=== PATIENT | female | born 1970 | race Caucasian/White ===

== ENCOUNTER → 2016-10-27 | Outpatient (CLI) | payer OTHER ==
[~2016-10-27] MED LIST: AMOX500C PO; Allergy Shots SC; CALC500T25 PO; EFFE150C PO; FLON0.054; IBUP200C PO; IBUP600T26 PO; MONT10TA2 PO; MULT1TAB8 PO; NORCOTAB PO; XOPEAER INH; ZYRT10TA2 PO
--- NOTE | 2016-10-27 17:08 | REP ---
Clinical: Sprain. Technique: AP, lateral, bilateral oblique views of the left foot. Findings: Age-related degenerative changes are appreciated primarily involving the midfoot. Lateral view demonstrates calcaneal heal spur and calcifications in the plantar soft tissue. No acute fracture or dislocation noted. Impression: Degenerative changes. No acute fracture or dislocation. Signed by Florentin Barnett MD 10/27/2016 05:00 P
--- NOTE | 2016-10-27 17:10 | REP ---
Clinical: Sprain. Technique: AP, lateral, bilateral oblique views of the left ankle. Findings: Marked soft tissue swelling is appreciated. No obvious acute fracture or dislocation identified. Underlying degenerative changes are noted possibly related to old injuries. Lateral view demonstrates calcaneal heal spur and calcifications within the plantar soft tissue. Impression: Diffuse soft tissue swelling. Degenerative changes. No acute fracture or dislocation. Signed by Florentin Barnett MD 10/27/2016 05:02 P
== END ==
LOC: M WUC 16:38
PROVIDERS: ATTEND Physician Assistant
DX: S93.422A Sprain of deltoid ligament of left ankle, initial encounter (principal); S93.602A Unspecified sprain of left foot, initial encounter; X58.XXXA Exposure to other specified factors, initial encounter; Y92.9 Unspecified place or not applicable; Y93.9 Activity, unspecified; Y99.9 Unspecified external cause status

== ENCOUNTER → 2017-01-14 | Outpatient (CLI) | payer OTHER ==
[2017-01-14 09:10] LABS: BASO % 0.6 % (0.0-1.0); EOS # 0.2 K/mm3 (0.0-0.50); EOS % 2.6 % (0.0-3.0); LARGE UNSTAINED CELL # 0.1 K/mm3 (0.0-0.4); LARGE UNSTAINED CELL % 1.5 % (0.0-4.0); LYMPH % 28.8 % (24.0-44.0); MEAN CORPUSCULAR HEMOGLOBIN 29.8 pg (27.0-33.0); MEAN CORPUSCULAR HGB CONC 34.3 g/dl (32.0-36.5); MEAN CORPUSCULAR VOLUME 86.9 fl (80.0-96.0); MONO # 0.4 K/mm3 (0.0-0.8); MONO % 5.8 % (0.0-5.0); NEUTROPHILS # 3.9 K/mm3 (1.8-7.7); NEUTROPHILS % 60.7 % (36.0-66.0); PLATELET COUNT, AUTOMATED 218 k/mm3 (150-450); RED CELL DISTRIBUTION WIDTH 12.5 % (11.5-14.5); WHITE BLOOD COUNT 6.4 K/mm3 (4.0-10.0)
[2017-01-14 09:55] LABS: ALBUMIN 3.4 GM/DL (3.2-5.2); ALBUMIN/GLOBULIN RATIO 1.03 (1.00-1.93); ALKALINE PHOSPHATASE 113 U/L (45-117); ALT/SGPT 40 U/L (12-78); ANION GAP 5 MEQ/L (8-16); AST/SGOT 20 U/L (15-37); BILIRUBIN,TOTAL 0.3 MG/DL (0.2-1.0); BLOOD UREA NITROGEN 13 MG/DL (7-18); CALCIUM LEVEL 9.3 MG/DL (8.5-10.1); CARBON DIOXIDE LEVEL 28 MEQ/L (21-32); CHLORIDE LEVEL 107 MEQ/L (98-107); CHOLESTEROL LEVEL 170 MG/DL (<200); CREATININE FOR GFR 0.67 MG/DL (0.55-1.02); GLOMERULAR FILTRATION RATE > 60.0 (>58); GLUCOSE, FASTING 101 MG/DL (70-105); POTASSIUM SERUM 4.7 MEQ/L (3.5-5.1); SODIUM LEVEL 140 MEQ/L (136-145); TOTAL PROTEIN 6.7 GM/DL (6.4-8.2); TRIGLYCERIDES LEVEL 275 MG/DL (<150)
== END ==
LOC: M WUC 08:20
PROVIDERS: ATTEND Emergency Medicine
DX: E78.2 Mixed hyperlipidemia (principal); E55.9 Vitamin D deficiency, unspecified; R10.11 Right upper quadrant pain

== ENCOUNTER 2017-05-15 07:24 | Inpatient (IN) | payer OTHER ==
[~2017-05-15] VITALS: Ht 162.6 cm; Wt 138.9 kg
[~2017-05-15 07:24] MED LIST changes: +IBUP-1022 PO; -IBUP200C PO; +IBUP200C10 PO; -IBUP600T26 PO; +LEVAINH INH; -XOPEAER INH
[2017-05-15] MEDS ORDERED: VITA200016 PO (07:38)
[2017-05-15] MEDS ORDERED: NS 1,000 ML IV SCH (07:52)
[2017-05-15] MEDS ORDERED: KETOROLAC 30 MG/ML VIAL (J1885) IV ONE (08:00)
[2017-05-15] MEDS ORDERED: ONDANSETRON 4MG/2ML VIAL (J2405) IV ONE (08:00)
[2017-05-15] MEDS: MORPHINE 4 MG/ML 1ML SYRINGE IV PRN ×2 (08:05→11:16)
[2017-05-15 08:20] LABS: BASO # 0.1 K/mm3 (0.0-0.2); BASO % 0.8 % (0.0-1.0); EOS # 0.2 K/mm3 (0.0-0.50); EOS % 1.7 % (0.0-3.0); LARGE UNSTAINED CELL # 0.1 K/mm3 (0.0-0.4); LARGE UNSTAINED CELL % 1.3 % (0.0-4.0); LYMPH # 1.9 K/mm3 (1.5-4.5); LYMPH % 19.8 % (24.0-44.0); MEAN CORPUSCULAR HEMOGLOBIN 31.1 pg (27.0-33.0); MEAN CORPUSCULAR HGB CONC 35.1 g/dl (32.0-36.5); MEAN CORPUSCULAR VOLUME 88.6 fl (80.0-96.0); MONO # 0.5 K/mm3 (0.0-0.8); NEUTROPHILS # 6.4 K/mm3 (1.8-7.7); NEUTROPHILS % 71.4 % (36.0-66.0); PLATELET COUNT, AUTOMATED 216 k/mm3 (150-450); RED CELL DISTRIBUTION WIDTH 12.5 % (11.5-14.5)
[2017-05-15 08:53] LABS: ALBUMIN 3.7 GM/DL (3.2-5.2); ALBUMIN/GLOBULIN RATIO 1.12 (1.00-1.93); ALKALINE PHOSPHATASE 143 U/L (45-117); ALT/SGPT 55 U/L (12-78); ANION GAP 11 MEQ/L (8-16); AST/SGOT 27 U/L (15-37); BILIRUBIN,DIRECT < 0.1 MG/DL (0.0-0.2); BILIRUBIN,TOTAL 0.2 MG/DL (0.2-1.0); BLOOD UREA NITROGEN 10 MG/DL (7-18); CALCIUM LEVEL 9.7 MG/DL (8.5-10.1); CARBON DIOXIDE LEVEL 23 MEQ/L (21-32); CHLORIDE LEVEL 108 MEQ/L (98-107); CREATININE FOR GFR 0.79 MG/DL (0.55-1.02); GLOMERULAR FILTRATION RATE > 60.0 (>58); GLUCOSE, FASTING 129 MG/DL (70-105); POTASSIUM SERUM 4.2 MEQ/L (3.5-5.1); SODIUM LEVEL 142 MEQ/L (136-145)
[2017-05-15] MEDS ORDERED: VITA1CAP7 PO (09:11)
[2017-05-15] MEDS ORDERED: FLON1SPR (09:11)
[2017-05-15] MEDS ORDERED: MURO5OIN OU (09:11)
--- NOTE | 2017-05-15 10:38 | REP ---
GALLBLADDER ULTRASOUND: 05/15/2017 COMPARISON: Ultrasound 11/14/2015, CT 08/21/2010, ultrasound 07/18/2010. CLINICAL HISTORY. Right upper quadrant pain, no gallstones. FINDINGS: The liver shows diffuse fatty infiltration with homogeneous hyperechoic parenchyma. This limits evaluation of liver parenchyma but no gross evidence for mass, ductal dilatation nor adjacent ascites. Gallbladder shows normal wall thickness of 2 mm. There are multiple echogenic stones with shadowing and some in the neck of the gallbladder. No pericholecystic fluid or tenderness on examination. No sonographic Levy sign. Common bile duct is dilated up to 9.5 mm, which is abnormal in this age group. Possibility of a stone distally in the duct cannot be discounted on this examination but this is not proved. Pancreas quite limited due to gas and body habitus considerations. The right kidney is 10.6 x 6.2 x 6.1 cm. Some linear echogenic foci in this renal sinus consist with calcified vessels. No hydronephrosis. IMPRESSION: 1. Cholelithiasis with multiple echogenic shadowing stone, at least one in the neck of the gallbladder but no gallbladder wall thickening or pericholecystic fluid. 2. Fatty infiltration liver without intrahepatic biliary dilatation but limited exam due to body habitus considerations and gas. 3. No sonographic Levy's sign. 4. There was a dilated common bile duct at 9.5 mm without visible filling defect in the duct portion visible. The possibility of a stone in the distal common duct or pancreatic head region cannot be excluded on this examination. 5. No generalized ascites. Pancreas very poorly visualized. Right kidney without gross hydronephrosis or mass. Signed by Jamarcus Carpenter MD 05/15/2017 07:04 P
[2017-05-15] MEDS ORDERED: MORPHINE 4 MG/ML 1ML SYRINGE IV PRN (11:15)
[2017-05-15] MEDS: LR 1,000 ML IV SCH ×2 (12:44→21:17)
[2017-05-15] MEDS: MORPHINE 2 MG/ML 1ML SYRINGE IV PRN (13:31)
[2017-05-15 14:08] VITALS: BP 146/91
[2017-05-15] MEDS: ONDANSETRON 4MG/2ML VIAL (J2405) IV PRN ×2 (15:08→20:16)
[2017-05-15 16:00] VITALS: BP 164/94
[2017-05-15] MEDS: NORCO, ANEXSIA 5/325MG TABLET (HYDROcodone/ACETAMINOPHEN) PO PRN ×2 (16:01→20:16)
[2017-05-15] MEDS: AMPICILLIN SOD/SULBACTAM SOD 3 GM in D5W MINI-BAG PLUS 100 ML IV SCH ×2 (18:01→22:27)
[2017-05-15 20:00] VITALS: BP 156/75
[2017-05-15] MEDS ORDERED: LEVALBUTEROL HFA 45MCG/ACT 15 GM INHALER INH PRN (21:45)
[2017-05-15] MEDS: VENLAFAXINE **XR** 75MG CAPSULE PO SCH (22:27)
[2017-05-15] MEDS: MONTELUKAST 10 MG TAB PO SCH (22:27)
[2017-05-16] VITALS (8 sets, daily range): BP systolic 92–167; BP diastolic 52–85
[2017-05-16] MEDS: ONDANSETRON 4MG/2ML VIAL (J2405) IV PRN ×4 (00:43→14:19)
[2017-05-16] MEDS: NORCO, ANEXSIA 5/325MG TABLET (HYDROcodone/ACETAMINOPHEN) PO PRN ×2 (00:54→05:40)
[2017-05-16] MEDS: LR 1,000 ML IV SCH ×3 (04:20→20:20)
[2017-05-16] MEDS: AMPICILLIN SOD/SULBACTAM SOD 3 GM in D5W MINI-BAG PLUS 100 ML IV SCH ×4 (04:58→22:35)
--- NOTE | 2017-05-16 05:26 | HPE ---
DATE OF ADMISSION: 05/15/2017 ADMISSION DIAGNOSIS: Cholelithiasis with acute cholecystitis. HISTORY OF PRESENT ILLNESS: The patient is a 46-year-old woman who was seen by me in the office on April [address] Dyllan Hall for treatment of symptomatic gallstones. She reported that she had been diagnosed with gallstones 2-3 years ago and had apparently had an episode, she reports, where she had a gallstone in her bile duct. She reports that she has had occasional episodes of epigastric and right upper quadrant abdominal pain since then. She developed an episode in March of this year which she reports was the worst since that she has ever had. She had severe pain with a burning sensation and complained of a lot of gas discomfort. She had some nausea but no vomiting. Pain was in her right upper quadrant and went around to her back. She has been evaluated with an ultrasound previously back on November 14, 2015. This revealed multiple gallstones in the gallbladder. It was reported that this was a similar finding to that noted on the study on July 18, 2010. She was not at that time noted to have any gallbladder wall thickening or pericholecystic fluid. There was some degree of fibrofatty infiltration of the liver identified. With her history of recent more severe pain and known gallstones, she was scheduled for a laparoscopic cholecystectomy which was coming up on May 23. However, she reports that she developed severe pain again in the epigastrium and right upper quadrant at about 5 o'clock in the morning on May 15. She had associated nausea and vomiting. The pain became quite severe and she presented to the emergency department at approximately 7: 24. She was evaluated with a repeat gallbladder ultrasound and had some laboratory studies performed as well. Labs showed a white count of 9000 with 71% neutrophils and a hemoglobin and hematocrit of 15 and 43. Her chemistry profile showed a slight elevation of the alkaline phosphatase to 143 and her glucose was 129. Lipase was normal. The ultrasound revealed a normal gallbladder wall thickness with multiple stones, some in the neck of the gallbladder. There was no yuiner cholecystic fluid. There was no sonographic Levy sign. Common bile duct was noted to be dilated up to 9.5 mm. She was treated in the emergency department for several hours but her pain did not remit. I was consulted and she was initially placed on observation status. On reassessment at approximately 05:00 p.m., or 12 hours after the onset of her discomfort, she still had pain and tenderness. Her diagnosis was converted to acute cholecystitis. She was started on Unasyn and converted to an admission and that will be added onto the operating room (OR) schedule for a laparoscopic cholecystectomy on May 16. MEDICATIONS: The patient's usual medications include: - venlafaxine hydrochloride XR 150 mg by mouth at bedtime - cetirizine 10 mg by mouth daily at bedtime - montelukast 10 mg by mouth daily at bedtime - Xopenex HFA inhaler two puffs as needed for shortness of breath - ibuprofen 600 mg by mouth every six hours as needed for pain - cholecalciferol 5000 units by mouth daily - Flonase allergy relief nasal spray as needed. - she also uses sodium chloride ophthalmic ointment at bedtime. ALLERGIES: Are reported to DOXYCYCLINE which leads to gastrointestinal upset, ERYTHROMYCIN, AZITHROMYCIN, and TAPE are also noted as allergies or adverse reactions. 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 This was in 2011. She had a hysterectomy also in December 2011. MEDICAL HISTORY: Significant for morbid obesity. She has a history of allergic rhinitis. She has a history of hyperlipidemia. 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 She does have a history of some anxiety as well. FAMILY HISTORY: Significant for diabetes and breast cancer in her mother. Father's history is unknown. SOCIAL HISTORY: The patient is . 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 The patient is a never smoker. She drinks alcohol on occasion. REVIEW OF SYSTEMS: Reveals no history of seizure or stroke. She has no chest pain or palpitations. She denies asthma, wheezing, cough or sputum production. She has had no dysuria or hematuria. She denies any bowel habit changes. She has had no melena or hematochezia. There is no history of jaundice, hepatitis or pancreatitis. There is no history of deep venous thrombosis (DVT) or pulmonary embolus. PHYSICAL EXAMINATION: GENERAL: Physical exam reveals a pleasant, morbidly obese woman lying quietly in the hospital bed. She is alert and oriented. HEENT: Sclerae are anicteric. Mucous membranes are moist. NECK: Is supple without palpable mass. HEART: Exam shows a regular rate and rhythm. LUNGS: Are clear to auscultation bilaterally. ABDOMEN: The abdomen is obese. She has some bowel sounds present on auscultation. The abdomen is obese but soft. There is some mild to moderate direct tenderness in the epigastrium and in the right subcostal area. She does not have significant rebound tenderness. There is no evidence of abdominal wall hernia. EXTREMITIES: Are without tenderness and she has intact radial pulses. LABORATORY DATA: Her labs are as noted in the history of present illness. IMPRESSION: 1. Cholelithiasis with acute cholecystitis, now with over 12 hours of pain and tenderness. 2. Morbid obesity. 3. Hyperlipidemia. 4. History of ductal carcinoma in situ status post bilateral mastectomies with reconstruction. 5. Anxiety. PLAN: The patient has had persistent pain with a known history of gallstones. She had an ultrasound today which did not show definite gallbladder wall thickening or pericholecystic fluid, although this was done quite early in the course of her discomfort. As she has had continued pain, I have diagnosed her clinically with acute cholecystitis. She has been started on Unasyn 3 grams intravenous (IV) every six hours. She will receive analgesics as necessary. I will let her take some clear liquids if desired up until midnight and she will then be made nothing by mouth. We will plan on proceeding with a laparoscopic cholecystectomy tomorrow, that is May 16, 2017. The patient was counseled and desires to proceed. MINH
[2017-05-16 06:54] LABS: BASO % 0.2 % (0.0-1.0); EOS # 0.1 K/mm3 (0.0-0.50); EOS % 0.4 % (0.0-3.0); LARGE UNSTAINED CELL # 0.1 K/mm3 (0.0-0.4); LARGE UNSTAINED CELL % 0.9 % (0.0-4.0); LYMPH # 1.6 K/mm3 (1.5-4.5); LYMPH % 9.8 % (24.0-44.0); MEAN CORPUSCULAR HEMOGLOBIN 30.8 pg (27.0-33.0); MEAN CORPUSCULAR HGB CONC 34.9 g/dl (32.0-36.5); MEAN CORPUSCULAR VOLUME 88.3 fl (80.0-96.0); MONO # 0.8 K/mm3 (0.0-0.8); MONO % 5.1 % (0.0-5.0); NEUTROPHILS # 12.4 K/mm3 (1.8-7.7); NEUTROPHILS % 83.6 % (36.0-66.0); PLATELET COUNT, AUTOMATED 203 k/mm3 (150-450); RED CELL DISTRIBUTION WIDTH 12.7 % (11.5-14.5); WHITE BLOOD COUNT 14.9 K/mm3 (4.0-10.0)
[2017-05-16 07:09] LABS: ALBUMIN 3.3 GM/DL (3.2-5.2); ALBUMIN/GLOBULIN RATIO 0.97 (1.00-1.93); ALKALINE PHOSPHATASE 92 U/L (45-117); ALT/SGPT 46 U/L (12-78); ANION GAP 8 MEQ/L (8-16); AST/SGOT 23 U/L (15-37); BILIRUBIN,TOTAL 0.6 MG/DL (0.2-1.0); BLOOD UREA NITROGEN 5 MG/DL (7-18); CALCIUM LEVEL 8.9 MG/DL (8.5-10.1); CARBON DIOXIDE LEVEL 28 MEQ/L (21-32); CHLORIDE LEVEL 102 MEQ/L (98-107); CREATININE FOR GFR 0.72 MG/DL (0.55-1.02); GLOMERULAR FILTRATION RATE > 60.0 (>58); GLUCOSE, FASTING 130 MG/DL (70-105); POTASSIUM SERUM 4.3 MEQ/L (3.5-5.1); SODIUM LEVEL 138 MEQ/L (136-145); TOTAL PROTEIN 6.7 GM/DL (6.4-8.2)
[2017-05-16] MEDS: MORPHINE 2 MG/ML 1ML SYRINGE IV PRN ×2 (10:03→14:19)
[2017-05-16] MEDS ORDERED: BUPIVACAINE HCL 0.25% 30 ML VIAL As Ordered ONE (15:39)
[2017-05-16] MEDS: ACETAMINOPHEN TAB 650MG DOSE (2X325MG) PO PRN (15:57)
[2017-05-16] MEDS ORDERED: MIDAZOLAM INJ 2 MG/2 ML VIAL (J2250) As Ordered ONE (18:18)
[2017-05-16] MEDS ORDERED: fentaNYL 250 MCG/5 ML INJECTION (J3010) As Ordered ONE ×2 (18:19→19:58)
[2017-05-16] MEDS ORDERED: DESFLURANE 240 ML INHALANT As Ordered ONE (19:02)
[2017-05-16] MEDS ORDERED: PROPOFOL 200 MG/20 ML VIAL As Ordered ONE (19:35)
[2017-05-16] MEDS ORDERED: ROCURONIUM BROMIDE 50 MG/5 ML VIAL/SYRINGE As Ordered ONE ×3 (19:35→21:15)
[2017-05-16] MEDS ORDERED: METOCLOPRAMIDE INJ 10MG/2ML VIAL (J2765) As Ordered ONE (19:35)
[2017-05-16] MEDS ORDERED: dexameTHASONE 4 MG/ML 1ML VIAL (J1100) As Ordered ONE (19:35)
[2017-05-16] MEDS ORDERED: PROPOFOL 500 MG/50 ML VIAL As Ordered ONE (21:32)
[2017-05-16] MEDS ORDERED: SUGAMMADEX SODIUM 500 MG/5 ML VIAL (BRIDION) As Ordered ONE (21:36)
[2017-05-16] MEDS ORDERED: ONDANSETRON 4MG/2ML VIAL (J2405) As Ordered ONE (21:38)
[2017-05-16] MEDS ORDERED: KETOROLAC 60 MG/2 ML VIAL (J1885) As Ordered ONE (21:38)
[2017-05-16] MEDS ORDERED: PHENYLephrine HCL 500 MCG/5 ML (100MCG/ML) SYRINGE (J2370) As Ordered ONE (21:41)
[2017-05-16] MEDS ORDERED: ePHEDrine SULFATE 25 MG/5 ML(5MG/ML) SYRINGE As Ordered ONE (21:41)
[2017-05-16] MEDS ORDERED: LIDOCAINE 2% INJ 100 MG/5 ML SDV (FOR ANES.) As Ordered ONE (21:42)
[2017-05-16] MEDS ORDERED: SUCCINYLCHOLINE 100 MG/5 ML SYRINGE (J0330) As Ordered ONE (21:42)
[2017-05-16] MEDS ORDERED: KETOROLAC 30 MG/ML VIAL (J1885) IV PRN (22:15)
[2017-05-16] MEDS ORDERED: ONDANSETRON 4MG/2ML VIAL (J2405) IV PRN (22:30)
[2017-05-16] MEDS ORDERED: LR 1,000 ML IV SCH (22:30)
[2017-05-16] MEDS ORDERED: PERCOCET 5MG/325MG TAB PO PRN (22:30)
[2017-05-16] MEDS ORDERED: METOCLOPRAMIDE INJ 10MG/2ML VIAL (J2765) IV PRN (22:30)
[2017-05-16] MEDS ORDERED: MEPERIDINE INJ 25 MG/ML VIAL (J2175) IV PRN (22:30)
[2017-05-16] MEDS ORDERED: fentaNYL 100 MCG/2 ML INJECTION (J3010) IV PRN (22:30)
[2017-05-16] MEDS ORDERED: PERCOCET 5MG/325MG TAB As Ordered ONE (22:52)
[2017-05-16] MEDS: MONTELUKAST 10 MG TAB PO SCH (23:44)
[2017-05-16] MEDS: VENLAFAXINE **XR** 75MG CAPSULE PO SCH (23:45)
[2017-05-17] VITALS (8 sets, daily range): BP systolic 114–144; BP diastolic 58–89
[2017-05-17] MEDS: LR 1,000 ML IV SCH ×2 (03:50→11:43)
[2017-05-17] MEDS: AMPICILLIN SOD/SULBACTAM SOD 3 GM in D5W MINI-BAG PLUS 100 ML IV SCH ×4 (04:22→21:58)
[2017-05-17] MEDS: ACETAMINOPHEN TAB 650MG DOSE (2X325MG) PO PRN ×3 (08:06→16:38)
[2017-05-17 08:38] LABS: BASO % 0.1 % (0.0-1.0); EOS % 0.1 % (0.0-3.0); LARGE UNSTAINED CELL # 0.1 K/mm3 (0.0-0.4); LARGE UNSTAINED CELL % 0.7 % (0.0-4.0); LYMPH # 0.7 K/mm3 (1.5-4.5); LYMPH % 4.7 % (24.0-44.0); MEAN CORPUSCULAR HEMOGLOBIN 31.6 pg (27.0-33.0); MEAN CORPUSCULAR HGB CONC 35.5 g/dl (32.0-36.5); MEAN CORPUSCULAR VOLUME 89.2 fl (80.0-96.0); MONO # 0.6 K/mm3 (0.0-0.8); NEUTROPHILS % 90.4 % (36.0-66.0); PLATELET COUNT, AUTOMATED 172 k/mm3 (150-450); RED CELL DISTRIBUTION WIDTH 12.4 % (11.5-14.5); WHITE BLOOD COUNT 14.4 K/mm3 (4.0-10.0)
[2017-05-17 08:45] LABS: ALBUMIN 2.9 GM/DL (3.2-5.2); ALBUMIN/GLOBULIN RATIO 0.97 (1.00-1.93); ALKALINE PHOSPHATASE 76 U/L (45-117); ALT/SGPT 81 U/L (12-78); ANION GAP 9 MEQ/L (8-16); AST/SGOT 69 U/L (15-37); BILIRUBIN,TOTAL 0.6 MG/DL (0.2-1.0); BLOOD UREA NITROGEN 9 MG/DL (7-18); CALCIUM LEVEL 9.4 MG/DL (8.5-10.1); CARBON DIOXIDE LEVEL 27 MEQ/L (21-32); CHLORIDE LEVEL 104 MEQ/L (98-107); GLOMERULAR FILTRATION RATE > 60.0 (>58); GLUCOSE, FASTING 215 MG/DL (70-105); POTASSIUM SERUM 4.1 MEQ/L (3.5-5.1); SODIUM LEVEL 140 MEQ/L (136-145); TOTAL PROTEIN 5.9 GM/DL (6.4-8.2)
[2017-05-17] MEDS ORDERED: CETIRIZINE (ZyrTEC) 10 MG TAB PO SCH (09:00)
[2017-05-17] MEDS: NORCO, ANEXSIA 5/325MG TABLET (HYDROcodone/ACETAMINOPHEN) PO PRN ×2 (17:35→21:59)
[2017-05-17] MEDS ORDERED: AUGM875T28 PO (17:59)
[2017-05-17] MEDS ORDERED: NORCOTAB PO (17:59)
[2017-05-17] MEDS: VENLAFAXINE **XR** 75MG CAPSULE PO SCH (21:59)
[2017-05-17] MEDS: MONTELUKAST 10 MG TAB PO SCH (21:59)
[2017-05-18] VITALS: BP 106/57
[2017-05-18 04:00] VITALS: BP 123/72
[2017-05-18] MEDS: AMPICILLIN SOD/SULBACTAM SOD 3 GM in D5W MINI-BAG PLUS 100 ML IV SCH (04:09)
[2017-05-18] MEDS: NORCO, ANEXSIA 5/325MG TABLET (HYDROcodone/ACETAMINOPHEN) PO PRN ×2 (04:10→11:26)
[2017-05-18 07:43] LABS: BASO % 0.2 % (0.0-1.0); EOS # 0.1 K/mm3 (0.0-0.50); EOS % 0.4 % (0.0-3.0); LARGE UNSTAINED CELL # 0.1 K/mm3 (0.0-0.4); LARGE UNSTAINED CELL % 1.1 % (0.0-4.0); LYMPH # 0.9 K/mm3 (1.5-4.5); LYMPH % 7.3 % (24.0-44.0); MEAN CORPUSCULAR HEMOGLOBIN 31.1 pg (27.0-33.0); MEAN CORPUSCULAR HGB CONC 34.8 g/dl (32.0-36.5); MEAN CORPUSCULAR VOLUME 89.4 fl (80.0-96.0); MONO # 0.5 K/mm3 (0.0-0.8); MONO % 3.9 % (0.0-5.0); NEUTROPHILS # 10.7 K/mm3 (1.8-7.7); PLATELET COUNT, AUTOMATED 206 k/mm3 (150-450); RED CELL DISTRIBUTION WIDTH 12.6 % (11.5-14.5); WHITE BLOOD COUNT 12.2 K/mm3 (4.0-10.0)
[2017-05-18 08:00] VITALS: BP 136/76
[2017-05-18 08:01] LABS: ALBUMIN 2.9 GM/DL (3.2-5.2); ALBUMIN/GLOBULIN RATIO 0.97 (1.00-1.93); ALKALINE PHOSPHATASE 79 U/L (45-117); ALT/SGPT 65 U/L (12-78); ANION GAP 9 MEQ/L (8-16); AST/SGOT 38 U/L (15-37); BILIRUBIN,TOTAL 0.4 MG/DL (0.2-1.0); BLOOD UREA NITROGEN 16 MG/DL (7-18); CALCIUM LEVEL 8.7 MG/DL (8.5-10.1); CARBON DIOXIDE LEVEL 27 MEQ/L (21-32); CHLORIDE LEVEL 106 MEQ/L (98-107); CREATININE FOR GFR 0.71 MG/DL (0.55-1.02); GLOMERULAR FILTRATION RATE > 60.0 (>58); GLUCOSE, FASTING 106 MG/DL (70-105); POTASSIUM SERUM 3.9 MEQ/L (3.5-5.1); SODIUM LEVEL 142 MEQ/L (136-145); TOTAL PROTEIN 5.9 GM/DL (6.4-8.2)
--- NOTE | 2017-05-19 07:45 | RO ---
DATE OF PROCEDURE: 05/16/2017 PREOPERATIVE DIAGNOSIS: Cholelithiasis and acute cholecystitis. POSTOPERATIVE DIAGNOSIS: Cholelithiasis and acute cholecystitis. PROCEDURE PERFORMED: Laparoscopic cholecystectomy. SURGEON: Dr. Zhang Fiarbanks DIRECTOR GAME: ANESTHESIA: General. INDICATIONS FOR PROCEDURE: The patient is a 46-year-old woman with a long history of cholelithiasis. She has recently had more significant episodic symptoms of abdominal pain and was scheduled for a laparoscopic cholecystectomy in approximately a week. She presented to the emergency department on May 15 complaining of severe epigastric and right upper quadrant pain. She had persistent pain and tenderness and was felt to have clinically developed acute cholecystitis. She was started on intravenous antibiotics and is now for a laparoscopic cholecystectomy. The patient was placed supine on the operating table. She was placed under general endotracheal anesthesia. The patient's abdomen was prepped and draped in a sterile fashion. 0.25% Marcaine was infiltrated at the trocar sites. A short midline incision was made approximately 6-8 cm above the umbilicus. This incision was deepened through the abundant subcutaneous fat to the fascia which was opened along the midline. The peritoneum was opened bluntly and a Zelaya cannula was inserted. The abdomen was inflated with carbon dioxide gas. The laparoscope was placed. Initial examination revealed extensive omental fat. The liver was partially seen and appeared pale in color consistent with some fatty infiltration. The edges of the liver were quite rounded. Portions of the bowel were seen and appeared normal. There was omentum adherent up over the area of the gallbladder which was not seen. The patient was tilted to a reverse Trendelenburg position. She was rolled slightly to the left. Two 5 mm trocars were placed in the right upper quadrant and a third 5 mm trocar was placed in the left. These were placed slightly higher in the abdomen than usual based on the patient's morbid obesity. The omental fat at the undersurface the liver was dissected free using the hook cautery. The patient was found to have a markedly thickened, inflamed and edematous gallbladder. Exposure was difficult because of the thickness of the liver and the patient's morbid obesity. At several points during the procedure, she also had return of some muscular tone with some respiratory activity creating a more limited space. The gallbladder was tensely distended and so this was aspirated with an aspirating needle. Approximately 15 mL of clear fluid consistent with hydrops was aspirated. The gallbladder was then grasped and elevated. The wall was quite thickened and even holding the gallbladder proved difficult at times. The procedure was extremely difficult. The degree of inflammation was severe. My initial approach was to approach toward the area of the gallbladder neck, but the scarring appeared to be most severe in this area. Some tissues were divided and the neck of the gallbladder was dissected free partially by blunt dissection from surrounding tissues posteriorly. There were significant stones within the neck of the gallbladder which made mobility also more difficult. I attempted to proceed with dissection and opened a small blood vessel at the gallbladder neck, most likely the cholecystic artery. This was initially controlled with a clamp and then after dissecting this area a little bit more I was able to place a hemoclip across this. Ultimately, I decided to mobilize the fundus of the gallbladder in hopes of gaining better exposure. Therefore, I mobilized the fundus and developed a plane between the inflamed gallbladder tissues and the bed of the gallbladder. This alternated with periods of continuing with dissection along the medial and lateral aspects of the gallbladder and at the gallbladder neck. Ultimately, it was possible to free the gallbladder down to the neck. I had been unable to expose the cystic duct because of the extensive scarring. Once I had dissected the neck of the gallbladder free circumferentially, I elected to transect the gallbladder at its neck using the cautery. As this was transected, a large stone about 2 cm in diameter was released from this area. The gallbladder and this released stone were then placed within an Endopouch. I would note that in the course of dissection, the gallbladder had been opened and some partially watery and partially purulent appearing fluid had been released from the area of the gallbladder neck. I therefore considered this a class IV case. Once the gallbladder and stone had been bagged, inspection showed no drainage of any bile from the area of the small segment of the gallbladder neck that was retained. The area was copiously irrigated and inspected for hemostasis. There was no bleeding and no bile leak was identified. Because of the difficulty of the dissection and the inability to control the cystic duct, I elected to place a drain. The 19-[place] Daniel drain was inserted through the 10 mm supraumbilical port and directed out through the lateral right upper quadrant port site. This was positioned in the subhepatic space directly across the gallbladder bed. A final inspection confirmed no bleeding and no bile leak. The patient was returned to a flat position. The abdomen was deflated and the trocars were removed. The gallbladder was recovered through the Zelaya site, although it necessitated extending the fascial incision slightly because of the extensive stone burden. The gallbladder was sent for permanent pathology. The fascia at the Zelaya site was closed with interrupted simple sutures of #2-0 Vicryl. The drain was sutured to the skin with #2-0 silk and connected to a Saad-Pereira bulb. The skin incisions were closed with subcuticular sutures of #5-0 Vicryl. The patient reported an allergy to the tape of Steri-Strips so these were not utilized. Light dressings were applied to the trocar sites. The drain site was covered with a chlorhexidine gluconate OpSite. The patient tolerated the procedure well. Her estimated blood loss was approximately 400 mL. She was awakened in the operating room, extubated and moved to the recovery room in stable condition. MINH
--- NOTE | 2017-06-18 17:29 | DSES ---
DATE OF ADMISSION: 05/15/2017 DATE OF DISCHARGE: 05/18/2017 ADMISSION DIAGNOSIS: Cholelithiasis with acute cholecystitis. HISTORY OF PRESENT ILLNESS: The patient is a 46-year-old woman with a history of symptomatic gallstones. She was previously seen in the office and scheduled for a laparoscopic cholecystectomy on 05/23/2017. However, she presented to the emergency department complaining of severe pain in the epigastrium and right upper quadrant starting at about 5:00 o'clock in the morning on 05/15/2017. She had some associated nausea and vomiting. A gallbladder ultrasound was done which showed normal gallbladder wall thickening with multiple stones, some in the neck of the gallbladder. Her white blood cell count was 9000 with 71% neutrophils. She was observed in the emergency room (ER) for several hours but her pain persisted and I was consulted. She had mild to moderate direct tenderness in the epigastrium and in the right subcostal area consistent with acute cholecystitis. She was therefore admitted and started on IV antibiotics and scheduled for a laparoscopic cholecystectomy on the following day. HOSPITAL COURSE: The patient was treated with IV antibiotics but continued with tenderness in the right subcostal area consistent with acute cholecystitis. On 05/16/2017, she was taken to the operating room where she underwent a laparoscopic cholecystectomy. She was found to have a markedly inflamed gallbladder. A drain was left in the right upper quadrant at the conclusion of the procedure. By postoperative day number one, she had no nausea or vomiting. She tolerated a diet well. Her white count was 14,000 and her liver function tests were perhaps minimally elevated. Her drain showed no sign of bile leak. Overall, she was doing well. She was observed overnight into Saturday05/18/2017 , and was then felt to be ready for discharge and was discharged home. Her pathology report confirmed acute cholecystitis with cholelithiasis. FINAL DIAGNOSES: 1. Cholelithiasis with acute cholecystitis. 2. Morbid obesity. 3. Hyperlipidemia. 4. History of ductal carcinoma in situ status post bilateral mastectomies with reconstruction. 5. Anxiety. PROCEDURE PERFORMED: A laparoscopic cholecystectomy. DISPOSITION: She was discharged home on 05/18/2017 in good condition. She was advised that she could take a shower but could not take a bath. She was to record her drain output daily and bring the record with her to her followup visit. She was to call the office the following Saturday to arrange a time for drain removal. She was to follow a low-fat diet and could pursue activity as tolerated. She was provided prescriptions for Augmentin and [place]. She was otherwise to continue her chronic medications. She was call for any problems. MINH
== END 2017-05-18 11:50 | disposition home or self-care (01) | DRG 419 ==
LOC: M ED 07:24 → M ED INP 12:20 → M PED 14:09 → OBSVTOIN 21:31
PROVIDERS: ADMIT Surgery; ATTEND Surgery
PROC: 0FT44ZZ Resection of Gallbladder, Percutaneous Endoscopic Approach (ICD-10-PCS; principal; 2017-05-16 17:25)
DX: K80.00 Calculus of gallbladder with acute cholecystitis without obstruction (principal); Z79.899 Other long term (current) drug therapy; Z88.8 Allergy status to other drugs, medicaments and biological substances; Z88.1 Allergy status to other antibiotic agents; E66.01 Morbid (severe) obesity due to excess calories; J30.9 Allergic rhinitis, unspecified; E78.5 Hyperlipidemia, unspecified; Z85.3 Personal history of malignant neoplasm of breast; Z83.3 Family history of diabetes mellitus; Z80.3 Family history of malignant neoplasm of breast; F41.9 Anxiety disorder, unspecified

== ENCOUNTER 2017-05-22 13:01 | Inpatient (IN) | payer OTHER ==
[~2017-05-22] VITALS: Ht 162.6 cm; Wt 133.3 kg
[~2017-05-22 13:01] MED LIST changes: +AUGM875T28 PO; +FLON1SPR; +MURO5OIN OU; +VITA1CAP7 PO; +VITA200016 PO
[2017-05-22] MEDS ORDERED: ACETAMINOPHEN TAB 650MG DOSE (2X325MG) PO PRN (13:15)
[2017-05-22] MEDS ORDERED: MORPHINE 2 MG/ML 1ML SYRINGE IV PRN (13:15)
[2017-05-22] MEDS ORDERED: NORCO, ANEXSIA 5/325MG TABLET (HYDROcodone/ACETAMINOPHEN) PO PRN (13:15)
[2017-05-22] MEDS ORDERED: LEVALBUTEROL HFA 45MCG/ACT 15 GM INHALER INH PRN (13:15)
[2017-05-22 13:30] VITALS: BP 108/60
[2017-05-22 13:58] LABS: BASO % 0.4 % (0.0-1.0); EOS # 0.3 K/mm3 (0.0-0.50); EOS % 2.4 % (0.0-3.0); INR 1.03; LARGE UNSTAINED CELL # 0.2 K/mm3 (0.0-0.4); LARGE UNSTAINED CELL % 1.3 % (0.0-4.0); LYMPH # 1.8 K/mm3 (1.5-4.5); LYMPH % 12.8 % (24.0-44.0); MEAN CORPUSCULAR HEMOGLOBIN 30.7 pg (27.0-33.0); MEAN CORPUSCULAR HGB CONC 34.6 g/dl (32.0-36.5); MEAN CORPUSCULAR VOLUME 88.6 fl (80.0-96.0); MONO # 0.6 K/mm3 (0.0-0.8); MONO % 4.5 % (0.0-5.0); NEUTROPHILS # 10.2 K/mm3 (1.8-7.7); NEUTROPHILS % 78.6 % (36.0-66.0); PLATELET COUNT, AUTOMATED 260 k/mm3 (150-450); RED CELL DISTRIBUTION WIDTH 12.5 % (11.5-14.5); WHITE BLOOD COUNT 12.9 K/mm3 (4.0-10.0)
[2017-05-22] MEDS: LR 1,000 ML IV SCH ×2 (14:48→23:26)
[2017-05-22] MEDS ORDERED: GASTROGRAFIN SOLUTION 30ML PO ONE (15:45)
[2017-05-22] MEDS ORDERED: GASTROGRAFIN SOLUTION 30ML (Q9963) PO ONE (16:15)
[2017-05-22 16:35] LABS: ALBUMIN 3.2 GM/DL (3.2-5.2); ALBUMIN/GLOBULIN RATIO 0.89 (1.00-1.93); ALKALINE PHOSPHATASE 86 U/L (45-117); ALT/SGPT 62 U/L (12-78); ANION GAP 6 MEQ/L (8-16); AST/SGOT 37 U/L (15-37); BILIRUBIN,TOTAL 0.4 MG/DL (0.2-1.0); BLOOD UREA NITROGEN 9 MG/DL (7-18); CALCIUM LEVEL 9.7 MG/DL (8.5-10.1); CARBON DIOXIDE LEVEL 29 MEQ/L (21-32); CHLORIDE LEVEL 106 MEQ/L (98-107); CREATININE FOR GFR 0.72 MG/DL (0.55-1.02); GLOMERULAR FILTRATION RATE > 60.0 (>58); GLUCOSE, FASTING 82 MG/DL (70-105); POTASSIUM SERUM 4.4 MEQ/L (3.5-5.1); SODIUM LEVEL 141 MEQ/L (136-145); TOTAL PROTEIN 6.8 GM/DL (6.4-8.2)
[2017-05-22] MEDS ORDERED: ISOVUE-370 76% 100ML VIAL (Q9967) As Ordered ONE (16:45)
--- NOTE | 2017-05-22 18:41 | REP ---
HISTORY: Status post cholecystectomy. COMPARISON: 08/21/2010, which is the only prior CT for comparison. CONTRAST: 100 mL [id number]. The lung bases are clear with the exception of minimal curvilinear densities in the inferior lingula consistent with minimal subsegmental atelectatic changes. Since the last examination, the patient is status post cholecystectomy. Within the postsurgical bed, there is subtle fatty infiltration. This extends somewhat inferiorly along the anterior edge of the posterior segment of the right lobe. This is without a discernible well demarcated fluid collection. There are no hepatic abnormalities. The spleen, pancreas, adrenal glands and kidneys are within normal limits. The abdominal aorta and periaortic regions are within normal limits. The bowel loops and their mesenteries are within normal limits. There is no evidence of free intraperitoneal air. There is no evidence of an intraabdominal mass or adenopathy. CT pelvis: There is no free fluid or free air. The bowel loops and their mesenteries are within normal limits. There is no evidence of a pelvic mass or adenopathy. Bone window technique throughout the exam shows the osseous structures to be within normal limits for the patient's age. IMPRESSION: Mild fatty infiltration of the mesentery in the postsurgical bed as described above. I suppose it is possible that this represents a scant amount of fluid, however, there is no discernible well demarcated fluid collection. This does not rule out a biliary leak, but it does rule out a well demarcated myeloma. If clinically relevant obtain hepatobiliary imaging for further evaluation. Signed by Eleno Jhaveri DO 05/22/2017 07:00 P
[2017-05-22] MEDS: MONTELUKAST 10 MG TAB PO SCH (20:43)
[2017-05-22] MEDS: VENLAFAXINE **XR** 75MG CAPSULE PO SCH (20:43)
[2017-05-22 22:00] VITALS: BP 128/70
[2017-05-22] MEDS: AMPICILLIN SOD/SULBACTAM SOD 3 GM in D5W MINI-BAG PLUS 100 ML IV SCH (23:26)
--- NOTE | 2017-05-23 00:46 | HPE ---
DATE OF ADMISSION: 05/22/2017 ADMITTING DIAGNOSIS: Bile leak post cholecystectomy. HISTORY OF PRESENT ILLNESS: The patient is a very pleasant 46-year-old woman who has a long history of known gallstones. In March, she had an episode of severe pain that she reported had lasted about 10 days before finally resolving. I saw her in the office in April and she was scheduled for an elective laparoscopic cholecystectomy to be performed on 05/23. 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 She had some associated nausea and vomiting and the pain became quite severe. She had a repeat gallbladder ultrasound that showed normal gallbladder wall thickness with multiple stones, some in the neck of the gallbladder. There was no pericholecystic fluid noted. She had a very slight elevation of her alkaline phosphatase to 143. She had persistent pain with tenderness in the right subcostal area and was admitted to the hospital and started on antibiotics with a diagnosis of acute cholecystitis. She was taken to the operating room on 05/16 where she underwent a very difficult laparoscopic cholecystectomy. She was found to have a markedly thickened and scarred gallbladder. There was difficulty developing a plane between the gallbladder and the gallbladder bed and because of severe scarring around the gallbladder neck the cystic duct could not be safely identified. Ultimately, the gallbladder was taken down in retrograde fashion and the neck of the gallbladder was transected where it could be safely identified. A large stone was pulled from the neck of the gallbladder and the gallbladder and stone were removed. There was no leakage of bile back through the gallbladder neck or from the gallbladder bed. Bleeding was controlled, but because of the difficult nature of the procedure, a 19-Romanian Daniel drain was placed in the subhepatic space to exit through the lateral trocar site in the right upper quadrant. The patient did very well following surgery. Her diet was advanced postoperatively and she was discharged home on the 05/18. She did well at home. She was discharged with 3 days of Augmentin to complete a course of antibiotics. She presented in the office today 05/22 for a reevaluation and possible removal of her drain. She provided a record of her drain output that had been approximately 2-3 ounces of fluid per day. She described it as having been initially somewhat bloody, but more recently was serous in nature. In the office, she had perhaps 5 mL of serous fluid in the bulb and in the tubing. She was afebrile and feeling well and her drain was removed. Immediately after removal of her drain, she was noted to drain some bilious fluid from the drain site. This persisted. She was placed on observation status to monitor this leakage of bile from her drain site. MEDICATIONS: The patient's admission medications include: - Freedom 5/325 tablets one tablet by mouth every 4 hours as needed for pain - Zyrtec 10 mg by mouth nightly - vitamin D3 5000 units by mouth nightly - Flonase nasal spray two sprays daily as needed - ibuprofen 600 mg by mouth every 6 hours as needed for pain - Xopenex inhaler two puffs four times a day as needed for shortness of breath - montelukast 10 mg by mouth nightly - sodium chloride ointment to both eyes as needed at bedtime - Effexor XR 150 mg by mouth nightly ALLERGIES: She reports allergies to AZITHROMYCIN, DOXYCYCLINE, some environmental allergies, ERYTHROMYCIN, and some adverse reaction to TAPE including STERI-STRIPS. PAST SURGICAL HISTORY: Her surgical history is most significant for laparoscopic cholecystectomy on 05/16. She has undergone a bilateral mastectomy with implant reconstruction in 2011. 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 She also had undergone a hysterectomy in approximately December 2011. PAST MEDICAL HISTORY: Her medical history is significant for morbid obesity. She has a history of allergic rhinitis and environmental allergies. She has a history of hyperlipidemia. 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 She does have a history of some anxiety as well. FAMILY HISTORY: Significant for diabetes and breast cancer in her mother. The father's history is unknown. SOCIAL HISTORY: The patient is . 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 The patient is a never smoker who drinks alcohol infrequently. REVIEW OF SYSTEMS: Reveals no history of cardiac disease. She has no chest pain or palpitations. She denies any history of seizure or stroke. She denies asthma, wheezing, shortness of breath. She has had no cough. She denies dysuria or hematuria. She has had some constipation following the surgery, but has not had any rectal bleeding. She denies any history of jaundice or dark urine. She has had no history of pulmonary embolus or deep venous thrombosis (DVT). PHYSICAL EXAMINATION: Reveals a very pleasant, but morbidly obese woman. Sclerae are anicteric. Mucous membranes are moist. The neck is supple without mass. Heart exam shows a regular rate and rhythm. Her lungs are clear to auscultation bilaterally. The abdomen reveals four recent skin incisions. There is one in the midline above the umbilicus, one in the left upper quadrant and one in the medial aspect of the right upper quadrant that are all healing well with a small amount of bruising. She has a small open wound in the lateral right upper quadrant which is draining some bilious fluid. The abdomen is otherwise obese, but has active bowel sounds and is soft and without undue tenderness considering her previous cholecystectomy 6 days ago. Extremities are without edema. She has palpable peripheral pulses. LABORATORY STUDIES: Reveal a white blood cell count of 12.9 with a hemoglobin of 13, hematocrit of 38 and a platelet count of 200. The differential count shows 79% neutrophils, 13% lymphocytes and 4% monocytes. Her coagulation panel including a PT/INR and PTT are normal. Chemistry profile shows a sodium of 141, potassium 4.4, chloride 106, CO2 of 29, BUN of 9, creatinine 0.7, and a glucose of 82. Liver function tests are entirely normal with a total protein of 6.8 and an albumin of 3.2. A CT scan was completed which shows some expected minor inflammatory changes in the gallbladder bed consistent with her postoperative state. There is no fluid collection identified. There are a few hemoclips identified in the gallbladder bed. I see no evidence of biliary ductal dilatation. There is no free fluid identified within the abdomen or pelvis, though there may be a trace of fluid in the area of the hepatic flexure just at the inferior edge of the liver. IMPRESSION: 1. Bile leak through the right lateral upper quadrant drain site following removal of the drain. 2. Morbid obesity. 3. Hyperlipidemia. 4. History of ductal carcinoma in situ of breast, status post bilateral mastectomies. 5. Anxiety. PLAN: The patient was counseled that I am at a loss to explain her onset of a bile leak at the time of her drain removal. Her fluid that drained from her drain has never been bilious since the time of surgery, but as soon as the drain was removed she immediately started draining some bile. I advised her that it may be that there was a small collection of bile that had been formed that was not being drained by her drain and that in removing it and the motion of the drain has opened this up to the drain tract. I suppose it is possible that in removing the drain that we dislodged some small bit of clot or material that was serving to seal a small bile leak. In any event, she has a small leakage of obvious bile through her drain site. She does not appear to have a large collection of fluid within the abdomen and this is reassuring. I advised her that we had several options that we could pursue. I discussed with her the possibility of doing a nuclear biliary scan, but given that she is obviously draining bile I think it is most likely that this would be positive and if it was negative it would still not be entirely reassuring. I also discussed with her the option of requesting gastroenterology consultation to consider proceeding directly to an endoscopic retrograde cholangiopancreatography (ERCP) with possible stenting. This would have the dual benefit of assessing for a bile leak and also to determine the location, but also to treat this appropriately by stenting the common bile duct to facilitate drainage and stop the leakage. After some discussion, I think that the best approach may be to proceed directly to the ERCP. Much of my concern is that if she stops leaking bile through her drain site, this may just represent that her drain site has closed and did not represent that her bile leak has stopped. Following discussion with the patient , I spoke with Dr. Riley of gastroenterology, who is lining ironer today and in discussion, we agreed that he would evaluate the patient on the morning of 05/23 and consider proceeding directly to ERCP. I think this makes the most sense. The patient will be started on an antibiotic in the interim. MINH
[2017-05-23 02:00] VITALS: BP 112/59
[2017-05-23 06:00] VITALS: BP 129/68
[2017-05-23] MEDS: AMPICILLIN SOD/SULBACTAM SOD 3 GM in D5W MINI-BAG PLUS 100 ML IV SCH ×3 (06:15→16:44)
[2017-05-23] MEDS: LR 1,000 ML IV SCH ×2 (09:15→16:44)
[2017-05-23 10:00] VITALS: BP 131/79
[2017-05-23 14:00] VITALS: BP 126/73
--- NOTE | 2017-05-23 14:34 | CR.PDOC ---
[facility] Consultation Consultation DATE OF CONSULTATION: 05/23/2017. Patient was examined at 7:30 AM and again at 12 : 20 PM. REFERRING PROVIDER: Dr. Fairbanks ATTENDING PHYSICIAN: Dr. Fairbanks REASON FOR CONSULTATION/CHIEF COMPLAINT: Bile leak. HISTORY OF PRESENT ILLNESS: 46 year old woman with morbid obesity ( BMI > 50), H /o cholecystectomy on 05/16/2017, ( laparoscopic with abdominal drain placement) and later drain removal with bile leakage from the drain site. GI was consulted for therapeutic ERCP with stent placement. Patient reports some epigastric pain , and pain at the laparoscopic skin incision sites. Pertinent negative GI symptoms: Patient denies fever, chills, nausea, vomiting, diarrhea, loss of appetite, early satiety or unintentional weight loss. No history of hematemesis, melena or hematochezia. Patient reports having bowel movements today morning. ALLERGIES: Patient few drug allergies - Please see below. HOME MEDICATIONS: reviewed. No Plavix and No anticoagulants MEDICAL H/O: As above. SURGICAL H/O: Laparoscopic cholecystectomy on 05/16/2017. SOCIAL H/O: Denies Alcohol, smoking, IVDA/ drugs. FAMILY H/O OF GI CANCERS - None PRIOR ENDOSCOPIES: --- EGD - None. --- Colonoscopy None PRIOR GI EVALUATION: None in [facility]. Exam: Vitals: reviewed. Afebrile. GENERAL: Alert and oriented x 3, not in distress HEENT: NO pallor, no icterus. Normal oropharynx, cannot visualize posterior pharyngeal wall or uvula. NO cervical lymph nodes. CHEST: symmetric with bilateral clear air entry, CVS: S1, S2 heard, normal, no murmurs . ABDOMEN: Obese, recent laparoscopic wounds noted, right upper quadrant - would site of drain noted with bile leak, mild epigastric tenderness, no palpable masses, normal bowel sounds heard. RECTAL EXAM: Patient refused / Deferred at this time. EXTREMITIES: no pedal edema, pulses palpable. RESUME WRITER: no focal motor or sensory deficits. Moves all extremities SKIN: no rash. Labs: reviewed. -- PLT > 250. Hb 13.2 WBC slightly elevated. INR normal . Imaging: none / reviewed. ASSESSMENT: - Persistent bile leak ( with h/o laparoscopic cholecystectomy) -- DDx - Could be bile leak from cystic duct. DDx - need to r/o CBD leak vs accessory cystic duct vs leak from ducts of [place]. Recommendations: -- NPO -- please continue Empiric antibiotics -- Please give IV fluids - prefer ringers lactate drip at 100 cc /hour for total of 1 litre. -- Type and screen ordered prior to procedure. -- Patient is educated about the need for ERCP for CBD stenting in view of the persistent and large amount of leak. -- The procedure, its indications, risks (acute pancreatitis and its complication sincluding multiorgan failure and even , bleeding, perforation , infection, hypotension, respiratory depression, allergy, need for endotracheal intubation, surgery, or even ), benefits, limitations ( including failed stenting), and all other alternatives (including no intervention) were explained to the patient who understood and agreed for the procedure -- All questions answered to the patient satisfaction and Patient verbalized understanding and agreed for plan of care. Plan of care discussed with patient and surgical team. Allergies Coded Allergies: Azithromycin (Verified Allergy, Unknown, 01/20/15) ENVIROMENTAL (Verified Allergy, Unknown, 01/20/15) Erythromycin (Verified Allergy, Unknown, 01/20/15) TAPE (Verified Allergy, Unknown, 01/20/15) Doxycycline (Verified Adverse Reaction, Mild, GI UPSET, 01/20/15) Home Medications Scheduled Amoxicillin/Clavulanate Potas (Augmentin 875-125 mg) 1 Tab Tab, 875 MG PO BID for 3 Days, #6 Cetirizine HCl (Zyrtec Allergy) 10 Mg Tab, 10 MG PO QHS, (Reported) Cholecalciferol (Vitamin D3 Maximum Streng) 5,000 Unit Cap, 5,000 UNIT PO QHS, ( Reported) Montelukast Sodium (Montelukast Sodium) 10 Mg Tab, 10 MG PO QHS, (Reported) Sodium Chloride ([place] 128 Opth Oint 5%) 5 % Oin, 1 DOSE OU QHS, (Reported) Venlafaxine Hydrochloride (Effexor Xr) 150 Mg Cap, 150 MG PO QHS, (Reported) Scheduled PRN (Flonase Allergy Relief) 50 Mcg/Act Spr, 2 SPRAYS NA DAILY PRN for NASAL CONGESTION, (Reported) Acetaminophen/Hydrocodone ([place], [place] 5/325) 1 Tab Tab, 1 TAB PO Q4HP PRN for MODERATE PAIN (PS 5-7), #12 Ibuprofen (Ibuprofen) 600 Mg Tab, 600 MG PO Q6HP PRN for ABDOMINAL PAIN, ( Reported) Levalbuterol Tartrate (Xopenex Hfa) 45 Mcg/Act Aer, 2 PUFF INH QID PRN for SHORTNESS OF BREATH, (Reported) RUDI RAPP MD May 23, 2017 14:34
[2017-05-23 18:00] VITALS: BP 141/90
[2017-05-23 21:30] VITALS: BP 132/81
--- NOTE | 2017-05-23 23:47 | ROOR ---
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 Procedure: Pre-Anesthesia Assessment: - Prior to the procedure, a History and Physical was performed, and patient medications and allergies were reviewed. The patient is competent. The risks and benefits of the procedure and the sedation options and risks were discussed with the patient. All questions were answered and informed consent was obtained. Patient identification and proposed procedure were verified by the physician, the nurse and the tailor women's garment alteration in the procedure room. Mental Status Examination: alert and oriented. Airway Examination: normal oropharyngeal airway and neck mobility. Respiratory Examination: clear to auscultation. CV Examination: normal. Prophylactic Antibiotics: The patient does not require prophylactic antibiotics. Prior Anticoagulants: The patient has taken no previous anticoagulant or antiplatelet agents. ASA Grade Assessment: III - A patient with severe systemic disease. After reviewing the risks and benefits, the patient was deemed in satisfactory condition to undergo the procedure. The anesthesia plan was to use general anesthesia. Immediately prior to administration of medications, the patient was re-assessed for adequacy to receive sedatives. The heart rate, respiratory rate, oxygen saturations, blood pressure, adequacy of pulmonary ventilation, and response to care were monitored throughout the procedure. The physical status of the patient was re-assessed after the procedure. The Duodenoscope was introduced through the mouth, and advanced to the duodenum and used to inject contrast into the bile duct. The ERCP was accomplished without difficulty. The patient tolerated the procedure well. Findings: The screw remover film was normal. The esophagus was successfully intubated under direct vision. The scope was advanced to a normal major papilla in the descending duodenum without detailed examination of the pharynx, larynx and associated structures, and Non- detailed endoscopic examination of the upper upper GI tract showed fundic gland polyps and gastric superficial ulcer and duodenal diverticulum. The upper GI tract was grossly normal. The bile duct was deeply cannulated with the short-nosed traction sphincterotome. Contrast was injected. I personally interpreted the bile duct images. Ductal flow of contrast was adequate. Image quality was adequate. Contrast extended to the entire biliary tree. The main bile duct was diffusely dilated, acquired. The largest diameter was 12 mm. The lower third of the main bile duct contained filling defect(s) thought to be a stone. 0.035 inch x 260 cm straight Hydra Jagwire was passed into the biliary tree. Biliary sphincterotomy was made with a braided traction (standard) sphincterotome using ERBE electrocautery. There was no post-sphincterotomy bleeding. To discover objects, the biliary tree was swept with a 12 mm balloon starting at the bifurcation. One stone was removed. No stones remained. One 10 Fr by 7 cm plastic stent with a single external flap and a single internal flap was placed into the common bile duct. Bile flowed through the stent. The stent was in good position. Impression: - Non- detailed endoscopic examination of the upper GI showed fundic gland polyps and gastric superficial ulcer and duodenal diverticulum. - A filling defect consistent with a stone was seen on the cholangiogram. - The entire main bile duct was dilated, acquired. - Choledocholithiasis was found. Complete removal was accomplished by biliary sphincterotomy and balloon extraction. - A biliary sphincterotomy was performed. - The biliary tree was swept. - One plastic stent was placed into the common bile duct. Recommendation: - Avoid aspirin and nonsteroidal anti-inflammatory medicines for 5 days. - [facility] patient to [facility] for [facility] care. - Clear liquid diet for 1 day, then advance as tolerated to resume regular diet. - Continue present medications. - Use a proton pump inhibitor PO daily for 6 weeks. - Repeat ERCP in 4 - 6 weeks to remove stent. - In view of fundic gland polyps and gastric ulcer would need EGD as well in 4 - 6 weeks - Return to GI clinic in 3 weeks. Julian Riley MD Julian Riley MD 05/23/2017 11:46:15 PM This report has been signed electronically. Number of Addenda: 0 Note Initiated On: 05/23/2017 10:23 PM Estimated Blood Loss: Estimated blood loss: none.
[2017-05-24] VITALS (7 sets, daily range): BP systolic 121–146; BP diastolic 65–91
[2017-05-24] MEDS ORDERED: ONDANSETRON 4MG/2ML VIAL (J2405) IV PRN
[2017-05-24] MEDS ORDERED: fentaNYL 100 MCG/2 ML INJECTION (J3010) IV PRN
[2017-05-24] MEDS ORDERED: PERCOCET 5MG/325MG TAB PO PRN
[2017-05-24] MEDS: LR 1,000 ML IV SCH ×4 (00:47→03:24)
[2017-05-24] MEDS: MONTELUKAST 10 MG TAB PO SCH (00:48)
[2017-05-24] MEDS: VENLAFAXINE **XR** 75MG CAPSULE PO SCH (00:48)
[2017-05-24] MEDS: AMPICILLIN SOD/SULBACTAM SOD 3 GM in D5W MINI-BAG PLUS 100 ML IV SCH ×2 (00:49→05:56)
--- NOTE | 2017-05-24 08:55 | REP ---
Seven intraoperative fluoroscopic views are performed during ERCP. Fluoroscopic exposure time is 3 minutes and 50 seconds. Fluoroscopic images are performed with last image hold technology. These images require no additional radiation. Signed by Jaydon Domínguez MD 05/24/2017 08:47 A
--- NOTE | 2017-06-18 17:46 | DSES ---
DATE OF ADMISSION: 05/22/2017 DATE OF DISCHARGE: 05/24/2017 ADMITTING DIAGNOSIS: Bile leak post cholecystectomy. HISTORY OF PRESENT ILLNESS: The patient is 46-year-old woman with a history of gallstones and symptoms of biliary colic. She had presented on May 15 with evidence of acute cholecystitis. She was admitted and started on antibiotics and on May 16 underwent a laparoscopic cholecystectomy. She was confirmed to have acute cholecystitis, and her surgery was quite difficult. For this reason a drain was left in the subhepatic space. She was discharged on May 18 to continue emptying her drain at home. She followed up in the office on May 22. At that time she was feeling well. She reported that the drain had had only some serosanguineous fluid. The drain site was clear. Her drain was removed, and almost immediately she was noted to have bile draining from the drain site. She was placed in the hospital for further management. Hospital course: She was started on antibiotics. A consult was obtained from Dr. Riley of gastroenterology. On May 23 he performed an endoscopic retrograde cholangiopancreatography (ERCP) with a balloon sweep of the common bile duct. A stone was removed. A stent was placed. The patient's bile leak stopped. Her progress following stent placement was excellent, and she was discharged home on May 24. FINAL DIAGNOSIS: Bile leak status post laparoscopic cholecystectomy 6 days earlier. OTHER DIAGNOSES: Include: 1. Morbid obesity. 2. Hyperlipidemia. 3. History of ductal carcinoma in situ of the breast, status post bilateral mastectomies. 4. Anxiety. PROCEDURE PERFORMED: An ERCP with papillotomy, balloon sweep, and stent placement. DISPOSITION: She was discharged home on 05/24/2017. She was to followup with me in the office on June 05 at 0830. She could pursue activity as tolerated. She was advised to avoid any lifting greater than 25-30 pounds or other strenuous activity. She could take a regular diet. She could shower as desired. She was not provided any new medications. She was to continue her chronic medications and call for any problems. MINH
== END 2017-05-24 11:59 | disposition home or self-care (01) | DRG 395 ==
LOC: M MSPAV 13:23
PROVIDERS: ADMIT Surgery; ATTEND Surgery
PROC: 0FC98ZZ Extirpation of Matter from Common Bile Duct, Via Natural or Artificial Opening Endoscopic (ICD-10-PCS; 2017-05-23)
PROC: 0FHB8DZ Insertion of Intraluminal Device into Hepatobiliary Duct, Via Natural or Artificial Opening Endoscopic (ICD-10-PCS; principal; 2017-05-23 07:58)
DX: K91.89 Other postprocedural complications and disorders of digestive system (principal); E66.01 Morbid (severe) obesity due to excess calories; E78.5 Hyperlipidemia, unspecified; K25.9 Gastric ulcer, unspecified as acute or chronic, without hemorrhage or perforation; K57.10 Diverticulosis of small intestine without perforation or abscess without bleeding; F41.9 Anxiety disorder, unspecified; Z90.13 Acquired absence of bilateral breasts and nipples; Z79.899 Other long term (current) drug therapy; Z88.1 Allergy status to other antibiotic agents; Z91.048 Other nonmedicinal substance allergy status; Z90.49 Acquired absence of other specified parts of digestive tract; Z90.710 Acquired absence of both cervix and uterus; Z85.3 Personal history of malignant neoplasm of breast; J30.9 Allergic rhinitis, unspecified; Z83.3 Family history of diabetes mellitus; Z80.3 Family history of malignant neoplasm of breast

== ENCOUNTER → 2017-07-24 | Outpatient (CLI) | payer OTHER ==
--- NOTE | 2017-07-25 11:34 | REP ---
Abdomen series: Four views presented. History: Bile duct calculus. Findings: A common bile duct stent is noted in place in the right upper quadrant. There are clips adjacent post cholecystectomy. The bowel gas pattern is normal. No significant bony abnormality. Impression: Biliary stent in place in the right upper quadrant. Signed by Woodrow Mauricio MD 07/25/2017 12:00 P
== END ==
LOC: M WUC 16:53
PROVIDERS: ATTEND Internal Medicine Gastroenterology
DX: K80.50 Calculus of bile duct without cholangitis or cholecystitis without obstruction (principal)

== ENCOUNTER 2017-10-22 14:57 | Day surgery (SDC) | payer OTHER ==
[2017-10-22] MEDS: LR 1,000 ML IV ×3 (15:48→19:53)
[2017-10-22] MEDS ORDERED: PROPOFOL 200 MG/20 ML VIAL As Ordered ×2 (15:49→16:11)
[2017-10-22] MEDS ORDERED: ROCURONIUM BROMIDE 50 MG/5 ML VIAL As Ordered (15:49)
[2017-10-22] MEDS ORDERED: LIDOCAINE 2% INJ 100 MG/5 ML SDV (FOR ANES.) As Ordered (15:49)
[2017-10-22] MEDS ORDERED: fentaNYL 100 MCG/2 ML INJECTION (J3010) As Ordered (15:50)
[2017-10-22] MEDS ORDERED: MIDAZOLAM INJ 2 MG/2 ML VIAL (J2250) As Ordered (15:50)
[2017-10-22] MEDS ORDERED: SUCCINYLCHOLINE 100 MG/5 ML SYRINGE (J0330) As Ordered (16:15)
[2017-10-22] MEDS ORDERED: dexameTHASONE 4 MG/ML 1ML VIAL (J1100) As Ordered (16:48)
[2017-10-22] MEDS: ISOVUE-300 61% 50ML VIAL (Q9967) As Ordered (17:00)
[2017-10-22] MEDS ORDERED: ONDANSETRON 4MG/2ML VIAL (J2405) As Ordered (17:05)
[2017-10-22] MEDS ORDERED: NEOSTIGMINE 10 MG/10 ML VIAL (J2710) As Ordered (17:06)
[2017-10-22] MEDS ORDERED: GLYCOPYRROLATE INJ 0.2 MG/ML 2 ML VIAL As Ordered (17:07)
[2017-10-22] MEDS ORDERED: fentaNYL 100 MCG/2 ML INJECTION (J3010) IV (17:45)
[2017-10-22] MEDS ORDERED: PERCOCET 5MG/325MG TAB PO (17:45)
[2017-10-22] MEDS ORDERED: ONDANSETRON 4MG/2ML VIAL (J2405) IV (17:45)
[2017-10-22] MEDS ORDERED: METOCLOPRAMIDE INJ 10MG/2ML VIAL (J2765) IV (17:45)
[2017-10-22] MEDS: PANTOPRAZOLE 40MG INJ (PROTONIX) (C9113) IV (20:31)
== END 2017-10-23 13:10 | disposition home or self-care (01) ==
LOC: M SDC 14:57 → M MS5PR 18:40
DX: K31.89 Other diseases of stomach and duodenum (principal); K80.50 Calculus of bile duct without cholangitis or cholecystitis without obstruction; K29.50 Unspecified chronic gastritis without bleeding; K57.10 Diverticulosis of small intestine without perforation or abscess without bleeding; E78.1 Pure hyperglyceridemia; K21.9 Gastro-esophageal reflux disease without esophagitis; R29.898 Other symptoms and signs involving the musculoskeletal system; M12.9 Arthropathy, unspecified; M54.2 Cervicalgia; M54.89 Other dorsalgia; F32.9 Major depressive disorder, single episode, unspecified; R51 Headache; J45.909 Unspecified asthma, uncomplicated; R06.83 Snoring; R06.02 Shortness of breath; C50.911 Malignant neoplasm of unspecified site of right female breast; J30.9 Allergic rhinitis, unspecified; E55.9 Vitamin D deficiency, unspecified; E66.01 Morbid (severe) obesity due to excess calories; Z68.43 Body mass index [BMI] 50.0-59.9, adult; Z88.1 Allergy status to other antibiotic agents; Z91.048 Other nonmedicinal substance allergy status; Z79.899 Other long term (current) drug therapy; Z90.710 Acquired absence of both cervix and uterus; Z90.13 Acquired absence of bilateral breasts and nipples
CPT/HCPCS: 43275

== ENCOUNTER → 2019-01-26 | Outpatient (REF) | payer OTHER ==
[~2019-01-26] MED LIST changes: +D-3-50003 PO; -EFFE150C PO; +EFFE150C2 PO; +HYDR-3715 PO; -IBUP200C10 PO; +IBUP200C25 PO; -NORCOTAB PO; +PANT40TA3 PO; -VITA1CAP7 PO; +ZYRT10CA5 PO; -ZYRT10TA2 PO
[2019-01-26 12:47] LABS: BASO % 0.5 % (0.0-1.0); EOS # 0.2 10^3/uL (0.0-0.50); EOS % 2.3 % (0.0-3.0); HEMATOCRIT 44.6 % (36.0-47.0); HEMOGLOBIN 15.4 g/dl (12.0-15.5); LYMPH # 2.5 10^3/uL (1.5-4.5); LYMPH % 32.9 % (24.0-44.0); MEAN CORPUSCULAR HEMOGLOBIN 30.6 pg (27.0-33.0); MEAN CORPUSCULAR HGB CONC 34.5 g/dl (32.0-36.5); MEAN CORPUSCULAR VOLUME 88.5 fl (80.0-96.0); MONO # 0.5 10^3/uL (0.0-0.8); MONO % 6.6 % (0.0-5.0); NEUTROPHILS # 4.3 10^3/uL (1.8-7.7); PLATELET COUNT, AUTOMATED 236 10^3/uL (150-450); RED BLOOD COUNT 5.04 10^6/uL (4.00-5.40); WHITE BLOOD COUNT 7.5 10^3/uL (4.0-10.0)
[2019-01-26 13:24] LABS: ALT/SGPT 98 U/L (12-78); BILIRUBIN,TOTAL 0.4 MG/DL (0.2-1.0); BLOOD UREA NITROGEN 12 MG/DL (7-18); CARBON DIOXIDE LEVEL 29 MEQ/L (21-32); CHLORIDE LEVEL 108 MEQ/L (98-107); CHOLESTEROL LEVEL 198 MG/DL (<200); CREATININE FOR GFR 0.74 MG/DL (0.55-1.30); GLOMERULAR FILTRATION RATE > 60.0 (>58); GLUCOSE, FASTING 104 MG/DL (70-100); HDL CHOLESTEROL 40 MG/DL (>40); LDL CHOLESTEROL 119 MG/DL (<100); NON-HDL-C 158 MG/DL; SODIUM LEVEL 141 MEQ/L (136-145); TOTAL 25(OH) VITAMIN D 51.1 NG/ML (30.0-100.0); TOTAL PROTEIN 7.1 GM/DL (6.4-8.2); TRIGLYCERIDES LEVEL 197 MG/DL (<150)
== END ==
LOC: M LABDRAW1 11:49
PROVIDERS: ATTEND Physician Assistant
DX: E78.2 Mixed hyperlipidemia (principal); E66.01 Morbid (severe) obesity due to excess calories; Z85.3 Personal history of malignant neoplasm of breast; E55.9 Vitamin D deficiency, unspecified

== ENCOUNTER → 2019-01-27 | Outpatient (CLI) | payer OTHER ==
--- NOTE | 2019-01-27 15:05 | REP ---
LEFT SHOULDER, THREE VIEWS: HISTORY: Shoulder pain. There is no acute fracture or dislocation. The glenohumeral joint space is normal in appearance. There is moderate narrowing of the acromioclavicular joint space with associated osteophyte formation. IMPRESSION: Degenerative change as described above. Electronically Signed by Meir Edwards MD 01/27/2019 03:07 P
== END ==
LOC: M WUC 14:22
PROVIDERS: ATTEND Physician Assistant
DX: M25.512 Pain in left shoulder (principal)

== ENCOUNTER → 2020-02-04 | Outpatient (CLI) | payer OTHER ==
[~2020-02-04] MED LIST changes: -MONT10TA2 PO; +MONT10TA4 PO
== END ==
LOC: M LABSMTC 10:23
PROVIDERS: ATTEND Family Medicine
DX: Z11.59 Encounter for screening for other viral diseases (principal); Z20.828 Contact with and (suspected) exposure to other viral communicable diseases

== ENCOUNTER → 2020-08-18 | Outpatient (CLI) | payer OTHER ==
[~2020-08-18] MED LIST changes: +PANT40TA29 PO; -PANT40TA3 PO
== END ==
LOC: M LABSMTC 14:23
PROVIDERS: ATTEND Family Medicine
DX: Z20.828 Contact with and (suspected) exposure to other viral communicable diseases (principal)
CPT/HCPCS: C9803; U0003

== ENCOUNTER → 2021-01-04 | Outpatient (CLI) | payer OTHER ==
[~2021-01-04] MED LIST changes: +MONT10TA10 PO; -MONT10TA4 PO
[2021-01-04 12:59] LABS: ALBUMIN 3.5 GM/DL (3.2-5.2); ALT/SGPT 122 U/L (12-78); BILIRUBIN,TOTAL 0.5 MG/DL (0.2-1.0); BLOOD UREA NITROGEN 10 MG/DL (7-18); CALCIUM LEVEL 10.2 MG/DL (8.5-10.1); CARBON DIOXIDE LEVEL 27 MEQ/L (21-32); CHLORIDE LEVEL 102 MEQ/L (98-107); CHOLESTEROL LEVEL 181 MG/DL (<200); CHOLESTEROL RISK RATIO 5.838 (<5); CREATININE FOR GFR 0.65 MG/DL (0.55-1.30); GLOMERULAR FILTRATION RATE > 60.0 (>58); GLUCOSE, FASTING 230 MG/DL (70-100); HDL CHOLESTEROL 31 MG/DL (>40); LDL CHOLESTEROL 84 MG/DL (<100); NON-HDL-C 150 MG/DL; POTASSIUM SERUM 4.3 MEQ/L (3.5-5.1); SODIUM LEVEL 137 MEQ/L (136-145); TOTAL PROTEIN 6.9 GM/DL (6.4-8.2); TRIGLYCERIDES LEVEL 331 MG/DL (<150)
== END ==
LOC: M WUC 10:35
PROVIDERS: ATTEND Physician Assistant Medical
DX: E78.2 Mixed hyperlipidemia (principal)

== ENCOUNTER → 2021-01-12 | Outpatient (CLI) | payer OTHER ==
[2021-01-12 15:45] LABS: HEMOGLOBIN A1c 7.7 %
== END ==
LOC: M WUC 08:10
PROVIDERS: ATTEND Physician Assistant Medical
DX: R73.01 Impaired fasting glucose (principal)

== ENCOUNTER → 2021-02-27 | Outpatient (CLI) | payer OTHER ==
[2021-02-27 17:01] LABS: BLOOD UREA NITROGEN 8 MG/DL (7-18); CALCIUM LEVEL 9.7 MG/DL (8.5-10.1); CARBON DIOXIDE LEVEL 28 MEQ/L (21-32); CHLORIDE LEVEL 104 MEQ/L (98-107); CREATININE FOR GFR 0.56 MG/DL (0.55-1.30); GLOMERULAR FILTRATION RATE > 60.0 (>58); GLUCOSE, FASTING 71 MG/DL (70-100); POTASSIUM SERUM 4.2 MEQ/L (3.5-5.1); SODIUM LEVEL 139 MEQ/L (136-145)
== END ==
LOC: M WUC 13:06
PROVIDERS: ATTEND Family Medicine
DX: Z01.812 Encounter for preprocedural laboratory examination (principal)

== ENCOUNTER → 2021-02-28 | Outpatient (CLI) | payer OTHER ==
[~2021-02-28] MED LIST changes: +PROHANCE 279.3MG/ML 15ML VIAL As Ordered ONE; +PROHANCE 279.3MG/ML 5ML VIAL As Ordered ONE
== END ==
LOC: M RAD 14:58
PROVIDERS: ATTEND Physician Assistant Medical
DX: T85.49XA Other mechanical complication of breast prosthesis and implant, initial encounter (principal)

== ENCOUNTER → 2021-04-20 | Outpatient (CLI) | payer OTHER ==
[~2021-04-20] MED LIST changes: -PROHANCE 279.3MG/ML 15ML VIAL As Ordered ONE; -PROHANCE 279.3MG/ML 5ML VIAL As Ordered ONE
[2021-04-20 13:43] LABS: HEMOGLOBIN A1c 5.9 %
== END ==
LOC: M WUC 10:33
PROVIDERS: ATTEND Physician Assistant Medical
DX: R73.01 Impaired fasting glucose (principal)

== ENCOUNTER → 2021-10-20 | Outpatient (CLI) | payer OTHER ==
[~2021-10-20] MED LIST changes: -MONT10TA10 PO; +MONT10TA97 PO
[2021-10-20 16:40] LABS: MAU/CREAT RATIO 6.8 MCG/MG (0.0-30.0)
[2021-10-20 16:49] LABS: ALBUMIN 3.9 GM/DL (3.2-5.2); ALT/SGPT 80 U/L (12-78); BILIRUBIN,TOTAL 0.3 MG/DL (0.2-1.0); BLOOD UREA NITROGEN 9 MG/DL (7-18); CALCIUM LEVEL 10.4 MG/DL (8.5-10.1); CARBON DIOXIDE LEVEL 33 MEQ/L (21-32); CHLORIDE LEVEL 105 MEQ/L (98-107); CHOLESTEROL LEVEL 209 MG/DL (<200); CHOLESTEROL RISK RATIO 6.147 (<5); CREATININE FOR GFR 0.75 MG/DL (0.55-1.30); GLOMERULAR FILTRATION RATE > 60.0 (>58); GLUCOSE, FASTING 118 MG/DL (70-100); HDL CHOLESTEROL 34 MG/DL (>40); LDL CHOLESTEROL 100 MG/DL (<100); NON-HDL-C 175 MG/DL; POTASSIUM SERUM 4.4 MEQ/L (3.5-5.1); SODIUM LEVEL 140 MEQ/L (136-145); TOTAL PROTEIN 7.5 GM/DL (6.4-8.2); TRIGLYCERIDES LEVEL 373 MG/DL (<150)
[2021-10-20 17:14] LABS: HEMOGLOBIN A1c 6.2 %
== END ==
LOC: M WUC 14:47
PROVIDERS: ATTEND Nurse Practitioner Family
DX: E11.65 Type 2 diabetes mellitus with hyperglycemia (principal)

== ENCOUNTER → 2021-11-16 | Outpatient (CLI) | payer OTHER ==
[2021-11-16 10:52] LABS: C REACTIVE PROTEIN QUANTITATIV 0.34 MG/DL (0.00-0.30); RHEUMATOID FACTOR QUANT < 10.0 IU/ML (<15.0); URIC ACID 4.6 MG/DL (2.6-6.0)
[2021-11-17 16:08] LABS: ANTINUCLEAR ANTIBODIES DIRECT Negative (Negative); Lyme Disease IgG/IgM Antibodie <0.91 ISR (0.00-0.90); Lyme Disease IgM Ab Quantitati <0.80 index (0.00-0.79)
== END ==
LOC: M WUC 08:18
PROVIDERS: ATTEND Nurse Practitioner Family
DX: M25.50 Pain in unspecified joint (principal)

== ENCOUNTER → 2022-04-26 | Outpatient (CLI) | payer OTHER | LOC: M WUC 10:22 | PROVIDERS: ATTEND Nurse Practitioner Family | DX: E11.65 Type 2 diabetes mellitus with hyperglycemia (principal) ==

== ENCOUNTER → 2022-06-22 | Outpatient (CLI) | payer OTHER ==
[2022-06-25 16:08] LABS: H PYLORI SERUM QUANT IGA <9.0 units (0.0-8.9); H PYLORI SERUM QUANT IGM <9.0 units (0.0-8.9); H PYLORI SERUM QUANT IgG ABY 0.12 (0.00-0.79)
== END ==
LOC: M WUC 11:41
PROVIDERS: ATTEND Nurse Practitioner Family
DX: R11.0 Nausea (principal)

== ENCOUNTER → 2022-08-01 | Outpatient (CLI) | payer OTHER | LOC: M PLALAB 15:50 | PROVIDERS: ATTEND Nurse Practitioner Family | DX: E11.9 Type 2 diabetes mellitus without complications (principal) ==

== ENCOUNTER 2022-09-03 10:59 | Emergency (ER) | payer OTHER ==
[~2022-09-03] VITALS: Ht 163.8 cm; Wt 146.8 kg
[2022-09-03 10:59] VITALS: BP 150/83
[2022-09-03] MEDS ORDERED: METF500T13 (11:37)
[2022-09-03] MEDS ORDERED: VENL-37 (11:37)
[2022-09-03] MEDS ORDERED: OMEP40CA5 (11:37)
== END 2022-09-03 12:48 | disposition home or self-care (01) ==
LOC: M ED 10:59
DX: S13.4XXA Sprain of ligaments of cervical spine, initial encounter (principal); S00.03XA Contusion of scalp, initial encounter; W01.0XXA Fall on same level from slipping, tripping and stumbling without subsequent striking against object, initial encounter; Y92.481 Parking lot as the place of occurrence of the external cause; E11.9 Type 2 diabetes mellitus without complications; I10 Essential (primary) hypertension; K21.9 Gastro-esophageal reflux disease without esophagitis; J30.89 Other allergic rhinitis; Z79.899 Other long term (current) drug therapy; Z88.1 Allergy status to other antibiotic agents; Z91.89 Other specified personal risk factors, not elsewhere classified

== ENCOUNTER → 2022-09-19 | Outpatient (CLI) | payer OTHER ==
[~2022-09-19] MED LIST changes: +METF500T13; +OMEP40CA5; +VENL-37
== END ==
LOC: M RAD 11:27
PROVIDERS: ATTEND Nurse Practitioner Family
DX: E04.1 Nontoxic single thyroid nodule (principal)

== ENCOUNTER → 2022-10-29 | Outpatient (REF) | payer OTHER | LOC: M LAB REF 16:52 | PROVIDERS: ATTEND Internal Medicine Endocrinology, Diabetes & Metabolism | DX: E04.1 Nontoxic single thyroid nodule (principal) ==

== ENCOUNTER → 2022-10-31 | Outpatient (CLI) | payer OTHER ==
[2022-10-31 17:17] LABS: HEPATITIS B SURFACE ANTIBODY NEGATIVE (POSITIVE)
[2022-10-31 17:42] LABS: HIV SCREEN CENTAUR SOURCE NEGATIVE (NEGATIVE)
== END ==
LOC: M WUC 14:11
PROVIDERS: ATTEND Anesthesiology
DX: Z20.6 Contact with and (suspected) exposure to human immunodeficiency virus [HIV] (principal); Z20.5 Contact with and (suspected) exposure to viral hepatitis

== ENCOUNTER → 2022-11-21 | Outpatient (CLI) | payer OTHER ==
[2022-11-21 17:06] LABS: THYROID STIMULATING HORMONE 1.698 uIU/ML (0.55-4.78)
[2022-11-21 17:08] LABS: FREE T4 1.09 NG/DL (0.89-1.76)
== END ==
LOC: M WUC 11:56
PROVIDERS: ATTEND Nurse Practitioner Family
DX: E04.1 Nontoxic single thyroid nodule (principal)

== ENCOUNTER → 2023-01-23 | Outpatient (CLI) | payer OTHER ==
[2023-01-23 16:33] LABS: BASO # 0.1 10^3/uL (0.0-0.2); BASO % 0.7 % (0.0-1.0); EOS # 0.2 10^3/uL (0.0-0.5); EOS % 1.7 % (0.0-3.0); HEMATOCRIT 44.5 % (36.0-47.0); HEMOGLOBIN 15.3 g/dl (12.0-15.5); LYMPH # 2.9 10^3/uL (1.5-5.0); MEAN CORPUSCULAR HEMOGLOBIN 31.8 pg (27.0-33.0); MEAN CORPUSCULAR HGB CONC 34.4 g/dl (32.0-36.5); MEAN CORPUSCULAR VOLUME 92.5 fl (80.0-96.0); MONO # 0.6 10^3/uL (0.0-0.8); MONO % 6.8 % (2.0-8.0); NEUTROPHILS % 57.3 % (36.0-66.0); PLATELET COUNT, AUTOMATED 233 10^3/uL (150-450); RED BLOOD COUNT 4.81 10^6/uL (4.00-5.40); WHITE BLOOD COUNT 8.7 10^3/uL (4.0-10.0)
[2023-01-23 17:04] LABS: ALBUMIN 3.9 G/DL (3.2-5.2); ALKALINE PHOSPHATASE 115 U/L (46-116); ALT/SGPT 105 U/L (7.0-40); AST/SGOT 87 U/L (<34); BILIRUBIN,TOTAL 0.5 MG/DL (0.3-1.2); BLOOD UREA NITROGEN 12 MG/DL (9-23); CALCIUM LEVEL 10.2 MG/DL (8.5-10.1); CARBON DIOXIDE LEVEL 29 MMOL/L (20-31); CHLORIDE LEVEL 105 MMOL/L (98-107); CREATININE FOR GFR 0.64 MG/DL (0.55-1.30); GLOMERULAR FILTRATION RATE > 60.0 (>51); GLUCOSE, FASTING 101 MG/DL (60-100); POTASSIUM SERUM 4.5 MMOL/L (3.5-5.1); SODIUM LEVEL 139 MMOL/L (136-145); TOTAL PROTEIN 6.8 G/DL (5.7-8.2)
[2023-01-23 17:10] LABS: HEMOGLOBIN A1c 6.6 % (4.0-6.0)
== END ==
LOC: M WUC 11:56
PROVIDERS: ATTEND Nurse Practitioner Family
DX: E11.9 Type 2 diabetes mellitus without complications (principal)

== ENCOUNTER → 2023-05-13 | Outpatient (CLI) | payer OTHER ==
[2023-05-13 17:15] LABS: CHOLESTEROL RISK RATIO 5.43 (<5); LDL CHOLESTEROL 86.6 MG/DL (<100)
[2023-05-13 20:28] LABS: CREATININE, URINE 342.9 MG/DL; MAU/CREAT RATIO 6.4 MCG/MG (0.0-30.0)
== END ==
LOC: M WUC 12:43
PROVIDERS: ATTEND Registered Nurse
DX: E11.9 Type 2 diabetes mellitus without complications (principal); M79.605 Pain in left leg

== ENCOUNTER → 2023-08-05 | Outpatient (CLI) | payer OTHER ==
[2023-08-06 01:11] LABS: ALKALINE PHOSPHATASE 126 U/L (46-116); ALT/SGPT 68 U/L (7.0-40); AST/SGOT 47 U/L (<34); BILIRUBIN,TOTAL 0.6 MG/DL (0.3-1.2); BLOOD UREA NITROGEN 10 MG/DL (9-23); CALCIUM LEVEL 10.8 MG/DL (8.5-10.1); CARBON DIOXIDE LEVEL 30 MMOL/L (20-31); CHLORIDE LEVEL 105 MMOL/L (98-107); CHOLESTEROL LEVEL 178 MG/DL (<200); CHOLESTEROL RISK RATIO 4.01 (<5); CREATININE FOR GFR 0.66 MG/DL (0.55-1.30); GLOMERULAR FILTRATION RATE > 60.0 (>51); GLUCOSE, FASTING 120 MG/DL (60-100); HDL CHOLESTEROL 44.3 MG/DL (>40); LDL CHOLESTEROL 99.1 MG/DL (<100); NON-HDL-C 133.7 MG/DL; POTASSIUM SERUM 4.8 MMOL/L (3.5-5.1); SODIUM LEVEL 141 MMOL/L (136-145); TOTAL PROTEIN 7.1 G/DL (5.7-8.2); TRIGLYCERIDES LEVEL 173 MG/DL (<150)
== END ==
LOC: M WUC 10:43
PROVIDERS: ATTEND Registered Nurse
DX: E78.2 Mixed hyperlipidemia (principal)

== ENCOUNTER → 2023-10-28 | Outpatient (CLI) | payer OTHER ==
[~2023-10-28] MED LIST changes: -EFFE150C2 PO; +EFFE150C3 PO
[2023-10-28 09:51] LABS: ALBUMIN 3.7 G/DL (3.2-5.2); ALKALINE PHOSPHATASE 134 U/L (46-116); ALT/SGPT 80 U/L (7.0-40); AST/SGOT 50 U/L (<34); BILIRUBIN,TOTAL 0.4 MG/DL (0.3-1.2); BLOOD UREA NITROGEN 12 MG/DL (9-23); CALCIUM LEVEL 10.5 MG/DL (8.5-10.1); CARBON DIOXIDE LEVEL 27 MMOL/L (20-31); CHLORIDE LEVEL 108 MMOL/L (98-107); CREATININE FOR GFR 0.58 MG/DL (0.55-1.30); GLOMERULAR FILTRATION RATE > 60.0 (>51); GLUCOSE, FASTING 117 MG/DL (60-100); POTASSIUM SERUM 4.5 MMOL/L (3.5-5.1); SODIUM LEVEL 139 MMOL/L (136-145); TOTAL PROTEIN 6.8 G/DL (5.7-8.2)
[2023-10-28 10:01] LABS: HEMOGLOBIN A1c 5.9 % (4.0-6.0)
== END ==
LOC: M LAB 09:05
PROVIDERS: ATTEND Registered Nurse
DX: E11.9 Type 2 diabetes mellitus without complications (principal)

== ENCOUNTER 2024-01-29 06:46 | Day surgery (SDC) | payer OTHER ==
[~2024-01-29] VITALS: Ht 162.6 cm; Wt 140.0 kg
[~2024-01-29 06:46] MED LIST changes: +FENO54TA2 PO; +GABA-1171 PO; +GNPTAB36 PO; -METF500T13; +METF500T13 PO; -OMEP40CA5; +OMEP40CA5 PO; +TIRZ5PEN; -VENL-37; +VENL-37 PO
[2024-01-29] MEDS: NS 1,000 ML IV ONE (07:05)
[2024-01-29] MEDS ORDERED: propofoL 200 MG/20 ML VIAL As Ordered ONE (07:11)
[2024-01-29 08:21] VITALS: TEMP 97.9
[2024-01-29 08:43] VITALS: BP 157/88; O2SAT 100
== END 2024-01-29 09:06 | disposition home or self-care (01) ==
LOC: M OPP 06:46
PROVIDERS: ATTEND Surgery
DX: Z12.11 Encounter for screening for malignant neoplasm of colon (principal); D12.6 Benign neoplasm of colon, unspecified; E11.9 Type 2 diabetes mellitus without complications; Z79.1 Long term (current) use of non-steroidal anti-inflammatories (NSAID); Z79.51 Long term (current) use of inhaled steroids; Z79.84 Long term (current) use of oral hypoglycemic drugs; Z79.85 Long-term (current) use of injectable non-insulin antidiabetic drugs; Z79.891 Long term (current) use of opiate analgesic; Z79.899 Other long term (current) drug therapy; Z88.1 Allergy status to other antibiotic agents; Z91.048 Other nonmedicinal substance allergy status

== ENCOUNTER → 2024-02-12 | Outpatient (CLI) | payer OTHER ==
[2024-02-12 10:16] LABS: BASO % 0.6 % (0.0-1.0); EOS # 0.2 10^3/uL (0.0-0.5); EOS % 2.4 % (0.0-3.0); HEMATOCRIT 43.8 % (36.0-47.0); HEMOGLOBIN 15.1 g/dl (12.0-15.5); MEAN CORPUSCULAR HEMOGLOBIN 31.7 pg (27.0-33.0); MEAN CORPUSCULAR HGB CONC 34.5 g/dl (32.0-36.5); MEAN CORPUSCULAR VOLUME 91.8 fl (80.0-96.0); MONO # 0.4 10^3/uL (0.0-0.8); MONO % 6.3 % (2.0-8.0); NEUTROPHILS # 4.3 10^3/uL (1.5-8.5); NEUTROPHILS % 61.4 % (36.0-66.0); PLATELET COUNT, AUTOMATED 247 10^3/uL (150-450); RED BLOOD COUNT 4.77 10^6/uL (4.00-5.40)
[2024-02-12 10:22] LABS: HEMOGLOBIN A1c 5.4 % (4.0-6.0)
[2024-02-12 10:30] LABS: ALBUMIN 3.4 G/DL (3.2-5.2); ALKALINE PHOSPHATASE 147 U/L (46-116); ALT/SGPT 76 U/L (7.0-40); AST/SGOT 57 U/L (<34); BILIRUBIN,TOTAL 0.5 MG/DL (0.3-1.2); BLOOD UREA NITROGEN 9 MG/DL (9-23); CALCIUM LEVEL 10.5 MG/DL (8.5-10.1); CARBON DIOXIDE LEVEL 29 MMOL/L (20-31); CHLORIDE LEVEL 108 MMOL/L (98-107); CHOLESTEROL LEVEL 164 MG/DL (<200); CHOLESTEROL RISK RATIO 3.79 (<5); CREATININE FOR GFR 0.65 MG/DL (0.55-1.30); GLOMERULAR FILTRATION RATE > 60.0 (>51); GLUCOSE, FASTING 129 MG/DL (60-100); HDL CHOLESTEROL 43.2 MG/DL (>40); LDL CHOLESTEROL 82.2 MG/DL (<100); NON-HDL-C 120.8 MG/DL; POTASSIUM SERUM 4.7 MMOL/L (3.5-5.1); SODIUM LEVEL 142 MMOL/L (136-145); TOTAL PROTEIN 6.5 G/DL (5.7-8.2); TRIGLYCERIDES LEVEL 193 MG/DL (<150)
== END ==
LOC: M LAB 09:21
PROVIDERS: ATTEND Registered Nurse
DX: E78.2 Mixed hyperlipidemia (principal); E11.9 Type 2 diabetes mellitus without complications

== ENCOUNTER → 2024-06-02 | Outpatient (CLI) | payer OTHER ==
[2024-06-02 12:34] LABS: ALBUMIN 3.7 G/DL (3.2-5.2); ALKALINE PHOSPHATASE 123 U/L (46-116); ALT/SGPT 64 U/L (7.0-40); AST/SGOT 47 U/L (<34); BILIRUBIN,TOTAL 0.6 MG/DL (0.3-1.2); BLOOD UREA NITROGEN 13 MG/DL (9-23); CALCIUM LEVEL 10.5 MG/DL (8.5-10.1); CARBON DIOXIDE LEVEL 27 MMOL/L (20-31); CHLORIDE LEVEL 108 MMOL/L (98-107); CHOLESTEROL LEVEL 158 MG/DL (<200); CHOLESTEROL RISK RATIO 3.85 (<5); CREATININE FOR GFR 0.58 MG/DL (0.55-1.30); GLOMERULAR FILTRATION RATE > 60.0 (>51); GLUCOSE, FASTING 91 MG/DL (60-100); LDL CHOLESTEROL 84.8 MG/DL (<100); POTASSIUM SERUM 4.5 MMOL/L (3.5-5.1); SODIUM LEVEL 139 MMOL/L (136-145); TOTAL PROTEIN 6.7 G/DL (5.7-8.2); TRIGLYCERIDES LEVEL 161 MG/DL (<150)
== END ==
LOC: M LAB 11:15
PROVIDERS: ATTEND Registered Nurse
DX: E83.52 Hypercalcemia (principal); E78.2 Mixed hyperlipidemia

== ENCOUNTER → 2024-10-20 | Outpatient (CLI) | payer OTHER ==
[~2024-10-20] MED LIST changes: +LEVA15HF2 INH; -LEVAINH INH
[2024-10-20 16:40] LABS: RHEUMATOID FACTOR QUANT 6.4 IU/ML (<14)
[2024-10-20 16:41] LABS: ALBUMIN 3.5 G/DL (3.2-5.2); ALKALINE PHOSPHATASE 166 U/L (35-104); ALT/SGPT 64 U/L (7.0-40); AST/SGOT 56 U/L (<34); BILIRUBIN,TOTAL 0.3 MG/DL (0.3-1.2); BLOOD UREA NITROGEN 13 MG/DL (9-23); C REACTIVE PROTEIN QUANTITATIV 0.57 MG/DL (<1.0); CARBON DIOXIDE LEVEL 27 MMOL/L (20-31); CHLORIDE LEVEL 107 MMOL/L (98-107); CREATININE FOR GFR 0.55 MG/DL (0.55-1.30); GLOMERULAR FILTRATION RATE > 60.0 (>51); GLUCOSE, FASTING 184 MG/DL (60-100); POTASSIUM SERUM 4.7 MMOL/L (3.5-5.1); SODIUM LEVEL 139 MMOL/L (136-145); TOTAL PROTEIN 6.7 G/DL (5.7-8.2)
[2024-10-20 16:42] LABS: FREE T4 1.13 NG/DL (0.89-1.76); THYROID STIMULATING HORMONE 1.403 uIU/ML (0.55-4.78)
[2024-10-20 16:46] LABS: BASO % 0.5 % (0.0-1.0); EOS # 0.2 10^3/uL (0.0-0.5); HEMATOCRIT 42.9 % (36.0-47.0); HEMOGLOBIN 14.6 g/dl (12.0-15.5); LYMPH # 2.3 10^3/uL (1.5-5.0); LYMPH % 30.8 % (24.0-44.0); MEAN CORPUSCULAR HEMOGLOBIN 31.5 pg (27.0-33.0); MEAN CORPUSCULAR VOLUME 92.7 fl (80.0-96.0); MONO # 0.6 10^3/uL (0.0-0.8); MONO % 8.1 % (2.0-8.0); NEUTROPHILS # 4.2 10^3/uL (1.5-8.5); NEUTROPHILS % 56.8 % (36.0-66.0); PLATELET COUNT, AUTOMATED 199 10^3/uL (150-450); RED BLOOD COUNT 4.63 10^6/uL (4.00-5.40); WHITE BLOOD COUNT 7.4 10^3/uL (4.0-10.0)
[2024-10-20 16:50] LABS: URIC ACID 3.4 MG/DL (3.1-7.8)
[2024-10-20 16:54] LABS: ERYTHROCYTE SEDIMENTATION RATE 13 mm/hr (0-30)
== END ==
LOC: M PLALAB 12:00
PROVIDERS: ATTEND Nurse Practitioner Family
DX: M12.9 Arthropathy, unspecified (principal); M25.551 Pain in right hip

== ENCOUNTER → 2024-12-17 | Outpatient (CLI) | payer OTHER ==
[2024-12-17 11:34] LABS: ALBUMIN 3.6 G/DL (3.2-5.2); ALKALINE PHOSPHATASE 132 U/L (35-104); ALT/SGPT 55 U/L (7.0-40); AST/SGOT 49 U/L (<34); BASO % 0.5 % (0.0-1.0); BILIRUBIN,TOTAL 0.5 MG/DL (0.3-1.2); BLOOD UREA NITROGEN 11 MG/DL (9-23); CALCIUM LEVEL 10.7 MG/DL (8.5-10.1); CARBON DIOXIDE LEVEL 28 MMOL/L (20-31); CHLORIDE LEVEL 109 MMOL/L (98-107); CHOLESTEROL LEVEL 166 MG/DL (<200); CHOLESTEROL RISK RATIO 4.22 (<5); CREATININE FOR GFR 0.61 MG/DL (0.55-1.30); EOS # 0.2 10^3/uL (0.0-0.5); EOS % 3.4 % (0.0-3.0); GLOMERULAR FILTRATION RATE > 60.0 (>51); GLUCOSE, FASTING 108 MG/DL (60-100); HDL CHOLESTEROL 39.3 MG/DL (>40); HEMATOCRIT 42.7 % (36.0-47.0); HEMOGLOBIN 14.6 g/dl (12.0-15.5); LDL CHOLESTEROL 104.1 MG/DL (<100); LYMPH % 30.5 % (24.0-44.0); MEAN CORPUSCULAR HEMOGLOBIN 31.5 pg (27.0-33.0); MEAN CORPUSCULAR HGB CONC 34.2 g/dl (32.0-36.5); MEAN CORPUSCULAR VOLUME 92.2 fl (80.0-96.0); MONO # 0.5 10^3/uL (0.0-0.8); MONO % 8.2 % (2.0-8.0); NEUTROPHILS # 3.7 10^3/uL (1.5-8.5); NEUTROPHILS % 57.1 % (36.0-66.0); NON-HDL-C 126.7 MG/DL; PLATELET COUNT, AUTOMATED 216 10^3/uL (150-450); POTASSIUM SERUM 4.7 MMOL/L (3.5-5.1); RED BLOOD COUNT 4.63 10^6/uL (4.00-5.40); SODIUM LEVEL 144 MMOL/L (136-145); TOTAL PROTEIN 6.7 G/DL (5.7-8.2); TRIGLYCERIDES LEVEL 113 MG/DL (<150); WHITE BLOOD COUNT 6.5 10^3/uL (4.0-10.0)
[2024-12-17 11:44] LABS: HEMOGLOBIN A1c 5.2 % (4.0-6.0)
== END ==
LOC: M PLALAB 08:41
PROVIDERS: ATTEND Family Medicine
DX: E11.9 Type 2 diabetes mellitus without complications (principal)

== ENCOUNTER → 2025-06-21 | Outpatient (CLI) | payer OTHER ==
[~2025-06-21] MED LIST changes: +GABA-1172 PO; -IBUP-1022 PO; +IBUP600T42 PO; +TIRZ7.5P
[2025-06-21 13:28] LABS: ESTIMATED AVERAGE GLUCOSE 197.0 MG/DL (60-110)
[2025-06-21 13:54] LABS: ALT/SGPT 54 U/L (7.0-40); AST/SGOT 45 U/L (<34); CALCIUM LEVEL 11.4 MG/DL (8.5-10.1); CARBON DIOXIDE LEVEL 30 MMOL/L (20-31); CHLORIDE LEVEL 104 MMOL/L (98-107); CHOLESTEROL LEVEL 184 MG/DL (<200); CHOLESTEROL RISK RATIO 4.85 (<5); CREATININE FOR GFR 0.53 MG/DL (0.55-1.30); GLOMERULAR FILTRATION RATE > 90.0 (>51); LDL CHOLESTEROL 94.5 MG/DL (<100); NON-HDL-C 146.1 MG/DL; POTASSIUM SERUM 4.8 MMOL/L (3.5-5.1); SODIUM LEVEL 141 MMOL/L (136-145); TRIGLYCERIDES LEVEL 258 MG/DL (<150)
[2025-06-21 13:55] LABS: TOTAL 25(OH) VITAMIN D 29.9 NG/ML (20.0-100.0)
[2025-06-21 14:21] LABS: HIV 1&2 SCREEN NEGATIVE (NEGATIVE)
[2025-06-21 14:29] LABS: HEPATITIS C VIRUS ABY INDEX < 0.02 INDEX (<0.8)
== END ==
LOC: M WUC 09:27
PROVIDERS: ATTEND Physician Assistant
DX: Z11.9 Encounter for screening for infectious and parasitic diseases, unspecified (principal)

== ENCOUNTER → 2025-07-27 | Outpatient (CLI) | payer OTHER | LOC: M SOG 07:20 | PROVIDERS: ATTEND Orthopaedic Surgery | DX: M25.551 Pain in right hip (principal) ==

== ENCOUNTER → 2025-08-04 | Outpatient (CLI) | payer OTHER | LOC: M RAD 08:34 | PROVIDERS: ATTEND Physician Assistant | DX: R74.8 Abnormal levels of other serum enzymes (principal); Z90.49 Acquired absence of other specified parts of digestive tract ==

== ENCOUNTER → 2025-08-05 | Outpatient (REF) | payer OTHER ==
[2025-08-05 14:32] LABS: APPEARANCE, URINE CLOUDY (CLEAR); BACTERIA, URINE AUTO 1+ (NEGATIVE); BILIRUBIN, URINE AUTO NEGATIVE (NEGATIVE); BLOOD, URINE BLOOD NEGATIVE (NEGATIVE); CALCIUM OXALATE CRYSTALS LARGE; GLUCOSE, URINE (UA) AUTO 2+ mg/dL (NEGATIVE); KETONE, URINE AUTO NEGATIVE (NEGATIVE); LEUKOCYTE ESTERASE, URINE AUTO NEGATIVE (NEGATIVE); MUCUS, URINE SMALL (NEGATIVE); NITRITE, URINE AUTO NEGATIVE (NEGATIVE); PROTEIN, URINE AUTO NEGATIVE (NEGATIVE); RBC, URINE AUTO 2 /HPF (0-3); SPECIFIC GRAVITY URINE AUTO 1.026 (1.002-1.035); SQUAMOUS EPITHELIAL CELL UR AU 4 /HPF (0-6); UROBILINOGEN, URINE AUTO 4.0 mg/dL (0.0-2.0); WBC, URINE AUTO 0 /HPF (0-3)
== END ==
LOC: M SMT 13:14
PROVIDERS: ATTEND Physician Assistant
DX: R32 Unspecified urinary incontinence (principal)